=== PATIENT | female | born 1940 | race African-American/Black ===

== ENCOUNTER 2018-11-10 11:08 | Inpatient (IN) | payer MEDICARE, OTHER ==
[~2018-11-10] VITALS: Ht 157.5 cm; Wt 73.4 kg
[~2018-11-10 11:08] MED LIST: AML5T PO; DOCU100C8 PO; EST0625T PO; FER325T PO; FURO40TA4 PO; GLIP-115 PO; LEVO25TA49 PO; MET25T PO; POTA20TA53 PO; SIMV-8 PO; TRAM50TA2 PO
[2018-11-10 13:30] VITALS: BP 110/75
--- NOTE | 2018-11-10 13:30 | NUR ---
Received patient from [facility] SRAADOLORES Velasquez admitted to Telemetry unit after SBAR received. Patient is Alert to self, on continuous telemetry monitoring, tele box # 9 and telemetry reading on arrival to unit is SR, HR 99. Patient placed on bedside oxygen, encouraged to call if they need assistance. Oriented to room and call light. Bed at lowest position. Will continue to monitor Q1hr and as needed.
--- NOTE | 2018-11-10 14:00 | NUR ---
Attempted to contact Daughter Kirsty Alejandro who lives in [place] for further information on patient, no answer. Will call again .
--- NOTE | 2018-11-10 14:40 | NUR ---
Estela Coppola, previous caregiver of patient, stopped to inform me that she will no longer be her caregiver, as she is moving to [place]. She provided me with her phone number and asked to call Kirsty Alejandro the daughter of the patient for information. She offered her phone number just in case the daughter was unable to provide information. . Left message, awaiting call back.
--- NOTE | 2018-11-10 16:00 | NUR ---
Attempted to call Estela Coppola again. Left message. Awaiting call.
[2018-11-10 17:03] VITALS: BP 110/75
--- NOTE | 2018-11-10 18:17 | NUR ---
Received admitting orders from doctor Diallo, orders read back and verified.
--- NOTE | 2018-11-10 19:20 | NUR ---
Care endorsed to NOC Rn. Patient resting in bed, no s/s of distress. Bed at lowest position. Call light within reach.
--- NOTE | 2018-11-10 19:21 | NUR ---
Opening Shift Note Assumed care of patient, awake and confuse. No S/S of distress/SOB or pain. Will continue to monitor for changes Q1hr and PRN.
[2018-11-10 19:55] LABS: BUN/Creatinine Ratio 28.9; Calcium 8.3 mg/dL (8.5-10.1); Potassium 3.9 mmol/L (3.5-5.1)
[2018-11-10 20:00] VITALS: BP 106/74
--- NOTE | 2018-11-10 20:40 | NUR ---
Respiratory note: ABG RESULTS REPORTED TO RN. DR. PERALTA NOTIFIED, NO NEW RESPIRATORY ORDERS GIVEN.
[2018-11-10] MEDS ORDERED: DOBUTamine 1000MCG/ML 250 ML IV SCH (21:00)
[2018-11-10 21:30] VITALS: BP 110/65
[2018-11-10] MEDS ORDERED: NITROGLYCERIN 0.4 MG SL TAB SL PRN (22:00)
[2018-11-10] MEDS ORDERED: MORPHINE SULFATE 10 MG/ML INJ 1ML SDV IV PRN (22:00)
[2018-11-10 22:57] LABS: Basophils # (auto) 0 uL; Basophils % (auto) 0.1 % (0.0-2.0); Eosinophils # (auto) 0 uL; Hematocrit 29.6 % (36.0-46.0); Hemoglobin 9.6 g/dL (12.2-16.2); Lymphocytes # (auto) 1.6 uL; Lymphocytes % (auto) 13.3 % (10.0-50.0); Mean Corpuscular Hemoglobin 29.9 pg (28.0-32.0); Mean Corpuscular Hgb Conc. 32.5 g/dL (32.0-36.0); Mean Corpuscular Volume 92.1 fL (80.0-100.0); Monocytes # (auto) 1.4 uL; Monocytes % (auto) 11.8 % (0.0-12.0); Neutrophils # (auto) 8.8 uL; Neutrophils % (auto) 74.8 % (37.0-80.0); Nucleated Red Blood Cells % 0.4 %; Platelet Count (auto) 186 10^3/uL (140-450); Red Blood Cells 3.22 10^6/uL (4.0-5.20); Red Cell Distribution Width 15.6 % (11.8-14.3); White Blood Cell 11.8 10^3/uL (4.4-10.8)
[2018-11-11] VITALS (7 sets, daily range): BP systolic 97–123; BP diastolic 61–82
[2018-11-11] MEDS: METOPROLOL TARTRATE 50 MG TAB PO SCH ×3 (00:04→22:50)
[2018-11-11] MEDS: busPIRone HCL 10 MG TAB PO SCH ×3 (00:04→22:49)
[2018-11-11] MEDS: FUROSEMIDE 40 MG/4 ML VIAL IV SCH ×3 (00:05→22:53)
[2018-11-11] MEDS ORDERED: traMADol HCL 50 MG TAB PO PRN (04:30)
[2018-11-11] MEDS: DOBUTamine 1000MCG/ML 250 ML IV SCH ×2 (07:15→17:56)
--- NOTE | 2018-11-11 07:30 | NUR ---
Opening shift note: Assumed care of patient, comfortably sleeping, breath sounds even and unlabored. No S/S of distress/SOB or pain. Bed at lowest position, bed alarm on and call light within reach. Instructed on POC and to call for assist PRN, will continue to monitor for changes Q1hr and PRN.
[2018-11-11] MEDS: LEVOTHYROXINE SODIUM 50 MCG TAB PO SCH (07:54)
[2018-11-11] MEDS: glipiZIDE 5 MG TAB PO SCH (07:54)
[2018-11-11] MEDS: FERROUS SULFATE 325 MG TAB PO SCH (10:00)
[2018-11-11] MEDS: DOCUSATE SOD 100 MG CAP PO SCH (10:00)
[2018-11-11] MEDS: amLODIPine BESYLATE 5 MG TAB PO SCH (10:00)
[2018-11-11] MEDS: PREMARIN 0.625 MG PO SCH (10:00)
[2018-11-11] MEDS: POTASSIUM CHL 20 Meq TABLET PO SCH (10:00)
--- NOTE | 2018-11-11 10:45 | NUR ---
WOUND CARE NOTE: PATIENT NOTED TO HAVE LOW DENISSE SCORE OF 12, ADDED PATIENT TO SKIN INTEGRITY MONITORING. PATIENT ADMITTED TO [facility] WITH DIAGNOSIS OF PNA. SHE IS WOUND FREE AT THIS TIME. MOST CURRENT DENISSE SCORE HAS RISEN TO 18. SHE CAN TURN/REPOSITION SELF WITH MINIMAL ASSISTANCE BY STAFF. SKIN/WOUND CARE PLAN IMPLEMENTED PER PROTOCOL. RECOMMEND: BID/MOISTURE BARRIER CREAM BID, SKIN/WOUND CARE PLAN. NO FURTHER MONITORING NEEDED AT THIS TIME.
--- NOTE | 2018-11-11 14:10 | NUR ---
Patients blood sugar 220, will inform Dr. Landrum. No s/s of distress noted or stated.
[2018-11-11] MEDS ORDERED: InsuLIN REG 1unit/0.01ml Soln (100units/ml) SC SCH (18:15)
[2018-11-11] MEDS ORDERED: ACCU-CHEK COMFORT CURVE STRIP VI SCH ×2 (18:15→22:00)
[2018-11-11] MEDS ORDERED: DEXTROSE (50%) 50ML SYRG IV PRN ×3 (18:15→19:00)
--- NOTE | 2018-11-11 18:20 | NUR ---
Dr. Landrum ordered moderate sliding scale, orders read back and verified.
--- NOTE | 2018-11-11 18:53 | NUR ---
ending shift note Patient is resting in bed, no s/s of distress noted or stated. Bed at lowest position and call light within reach. Will endorse care to NOC RN.
--- NOTE | 2018-11-11 19:00 | NUR ---
Opening Shift Note Assumed care of patient, awake, confuse. No S/S of distress/SOB or pain.Will continue to monitor for changes Q1hr and PRN.
[2018-11-11] MEDS: ACCU-CHEK COMFORT CURVE STRIP VI SCH (22:00)
[2018-11-11] MEDS ORDERED: SIMVASTATIN PO SCH (22:00)
[2018-11-11] MEDS: InsuLIN REG 1unit/0.01ml Soln (100units/ml) SC SCH ×2 (22:00)
[2018-11-11] MEDS: ATORVASTATIN 20 MG TAB PO SCH (22:50)
[2018-11-12] VITALS (7 sets, daily range): BP systolic 9–111; BP diastolic 49–72
[2018-11-12] MEDS: DOBUTamine 1000MCG/ML 250 ML IV SCH ×2 (06:41→14:12)
[2018-11-12] MEDS: LEVOTHYROXINE SODIUM 50 MCG TAB PO SCH (07:00)
[2018-11-12] MEDS: ACCU-CHEK COMFORT CURVE STRIP VI SCH ×4 (07:01→22:00)
[2018-11-12] MEDS: InsuLIN REG 1unit/0.01ml Soln (100units/ml) SC SCH ×4 (07:01→22:00)
[2018-11-12] MEDS: glipiZIDE 5 MG TAB PO SCH (07:01)
--- NOTE | 2018-11-12 07:30 | NUR ---
OPENING SHIFT NOTE: ASSUMED CARE OF PATIENT, PATIENT AWAKE, SITTING UP IN BED HAVING BREAKFAST. PATIENT ORIENTED X2, NO S/S OF DISTRESS NOTED OR STATED. BED AT LOWEST POSITION, BED ALARM ON, CALL LIGHT WITHIN REACH.
[2018-11-12] MEDS ORDERED: OPTISON 3ml Vial for INJ IV ONE (09:50)
[2018-11-12] MEDS: PREMARIN 0.625 MG PO SCH (10:00)
[2018-11-12] MEDS: amLODIPine BESYLATE 5 MG TAB PO SCH (10:00)
[2018-11-12] MEDS: METOPROLOL TARTRATE 50 MG TAB PO SCH ×2 (10:00→22:57)
[2018-11-12] MEDS: FUROSEMIDE 40 MG/4 ML VIAL IV SCH ×2 (10:00→22:54)
[2018-11-12] MEDS: FERROUS SULFATE 325 MG TAB PO SCH (10:47)
[2018-11-12] MEDS: POTASSIUM CHL 20 Meq TABLET PO SCH (10:48)
[2018-11-12] MEDS: DOCUSATE SOD 100 MG CAP PO SCH (10:48)
[2018-11-12] MEDS: busPIRone HCL 10 MG TAB PO SCH ×2 (10:48→22:56)
--- NOTE | 2018-11-12 12:23 | NUR ---
TELE MONITOR INFORMED ME THAT PATIENT WAS RUNNING AFIB WITH RBR RANGING FROM 190-208. PATIENT IS ASYMPTOMATIC. NO S/S OF DISTRESS NOTED OR STATED. NOTIFIED DR. PERALTA.
--- NOTE | 2018-11-12 12:50 | NUR ---
PATIENT'S EKG READS ABNORMAL, SHOWED IT TO DR. KLEIN, DOCTOR STATES ITS NOTHING URGENT. DR. PERALTA UPDATED. WILL CONTINUE TO MONITOR PATIENT. Addendum: 11/12/18 at 1322 by Sara Aragon RN DR. PERALTA ORDERED BETAPACE 40MG BID. ORDERS READ BACK AND VERIFIED.
[2018-11-12] MEDS: SOTALOL HCL 80 MG TAB PO SCH ×2 (14:46→22:56)
--- NOTE | 2018-11-12 19:00 | NUR ---
END OF SHIFT NOTE: PATIENT IS RESTING IN BED, NO S/S OF DISTRESS NOTED, OR STATED. BED AT LOWEST POSITION , CALL LIGHT WITHIN REACH. WILL ENDORSE CARE TO NOC RN.
[2018-11-12] MEDS: ATORVASTATIN 20 MG TAB PO SCH (22:55)
[2018-11-13 04:53] LABS: Urine Amorphous Crystal FEW /hpf (None Seen); Urine Bacteria MOD /hpf (None Seen); Urine Blood Negative /uL (Negative); Urine Budding Yeast MODERATE /hpf (None Seen); Urine Hyaline Cast FEW /lpf (0 - 2); Urine Mucus FEW (None Seen); Urine Specific Gravity 1.012 (1.001-1.035); Urine WBC 48 /hpf (0 - 5)
[2018-11-13 05:50] VITALS: BP 93/57
[2018-11-13] MEDS: DOBUTamine 1000MCG/ML 250 ML IV SCH ×3 (06:24→18:27)
[2018-11-13] MEDS: LEVOTHYROXINE SODIUM 50 MCG TAB PO SCH (06:25)
[2018-11-13] MEDS: glipiZIDE 5 MG TAB PO SCH ×2 (06:26→06:28)
[2018-11-13] MEDS: ACCU-CHEK COMFORT CURVE STRIP VI SCH ×4 (06:28→21:26)
[2018-11-13] MEDS: InsuLIN REG 1unit/0.01ml Soln (100units/ml) SC SCH ×4 (06:28→21:27)
--- NOTE | 2018-11-13 07:45 | NUR ---
OPENING SHIFT NOTE: ASSUMED CARE OF PATIENT, PATIENT AWAKE, SITTING UP IN BED HAVING BREAKFAST. PATIENT ORIENTED X1, NO S/S OF DISTRESS NOTED OR STATED. BED AT LOWEST POSITION, BED ALARM ON, CALL LIGHT WITHIN REACH.
[2018-11-13 08:00] VITALS: BP 111/68
[2018-11-13 09:00] VITALS: BP 111/68
[2018-11-13] MEDS: SOTALOL HCL 80 MG TAB PO SCH ×3 (09:38→21:56)
[2018-11-13] MEDS: METOPROLOL TARTRATE 50 MG TAB PO SCH ×2 (09:38→21:24)
[2018-11-13] MEDS: POTASSIUM CHL 20 Meq TABLET PO SCH ×2 (09:39→09:48)
[2018-11-13] MEDS: FERROUS SULFATE 325 MG TAB PO SCH (09:39)
[2018-11-13] MEDS: busPIRone HCL 10 MG TAB PO SCH ×2 (09:39→21:22)
[2018-11-13] MEDS: amLODIPine BESYLATE 5 MG TAB PO SCH (09:39)
[2018-11-13] MEDS: DOCUSATE SOD 100 MG CAP PO SCH (09:39)
[2018-11-13] MEDS: FUROSEMIDE 40 MG/4 ML VIAL IV SCH ×2 (09:40→18:00)
[2018-11-13] MEDS: PREMARIN 0.625 MG PO SCH (09:40)
--- NOTE | 2018-11-13 12:30 | NUR ---
Heart Cath Patient transferred to laboratory technical specialist.
[2018-11-13] MEDS ORDERED: LIDOCAINE 2%HCL (LOCAL ANESTH.) INJ 20ML MDV ONE ×2 (12:44→14:14)
[2018-11-13] MEDS ORDERED: IOHEXOL 350 MG/ML 100ML IJ ONE (12:44)
[2018-11-13 12:54] VITALS: BP 91/55
[2018-11-13] MEDS ORDERED: SODIUM CHL 0.9% 0 ML ONE (13:27)
[2018-11-13] MEDS ORDERED: ANGIOMAX 250 MG VIAL IV ONE (13:27)
[2018-11-13] MEDS ORDERED: CLOPIDOGREL 300 MG TAB ONE (14:54)
[2018-11-13] MEDS ORDERED: CLOPIDOGREL BISULFATE 75 MG TAB ONE (15:44)
[2018-11-13] MEDS ORDERED: DOBUTamine 1000MCG/ML 250 ML IV SCH (16:00)
[2018-11-13] MEDS ORDERED: CLOPIDOGREL BISULFATE 75 MG TAB PO ONE (16:00)
[2018-11-13 16:55] VITALS: BP 95/59
[2018-11-13] MEDS ORDERED: CLOPIDOGREL 300 MG TAB PO ONE (17:00)
[2018-11-13] MEDS: ENOXAPARIN SOD 60 MG/0.6 ML SYRINGE SC SCH ×2 (18:00→18:27)
[2018-11-13 18:35] LABS: INR 1.12 (0.9-1.15); Partial Thromboplastin Time 24.4 sec (23.78-33.04); Prothrombin Time 11.9 sec (9.27-12.13)
--- NOTE | 2018-11-13 20:00 | NUR ---
Opening Shift Note Assumed care of patient, awake and alert to self. No S/S of distress/SOB or pain. Instructed on POC and to call for assist PRN, will continue to monitor for changes Q1hr and PRN.Right and left groin dressing dry and intact.
[2018-11-13] MEDS: ATORVASTATIN 20 MG TAB PO SCH (22:27)
[2018-11-13 22:45] VITALS: BP 97/62
[2018-11-14] VITALS (7 sets, daily range): BP systolic 87–121; BP diastolic 55–69
--- NOTE | 2018-11-14 05:37 | NUR ---
Informed Yeison Bunn ,patients blood pressure is 87/55,88/52, and said as long as the map is greater than 60 its brayan with him, map is 66.
[2018-11-14] MEDS: FUROSEMIDE 40 MG/4 ML VIAL IV SCH ×2 (06:00→17:09)
--- NOTE | 2018-11-14 06:09 | NUR ---
Called/paged called re:patients blood pressure is 87/55,88/52 pulse is 86 . Waiting for call back. Continue care.
[2018-11-14] MEDS: glipiZIDE 5 MG TAB PO SCH (06:18)
[2018-11-14] MEDS: LEVOTHYROXINE SODIUM 50 MCG TAB PO SCH (06:18)
[2018-11-14] MEDS: ACCU-CHEK COMFORT CURVE STRIP VI SCH ×4 (06:19→22:17)
[2018-11-14] MEDS: InsuLIN REG 1unit/0.01ml Soln (100units/ml) SC SCH ×4 (06:19→22:00)
--- NOTE | 2018-11-14 06:41 | NUR ---
Rechecked the blood pressure its 110/60, pulse is 83
--- NOTE | 2018-11-14 07:13 | NUR ---
REPORT GIVEN TO Kassie lackey TO ASSUME CARE AND TO FOLLOW-UP TO MD. BETANCOURT HAD EPISODE OF LOW BLOOD PRESSURE AT 0600
--- NOTE | 2018-11-14 07:20 | NUR ---
Opening Shift Note Assumed care of patient. Patient oriented X 1. No S/S of distress/SOB or pain. Insructed on POC and to callfor assist PRN, will continue to monitor for changes Q1hr and PRN.
--- NOTE | 2018-11-14 09:40 | NUR ---
Dr. Landrum returned call Notified of low BP on shift boss. Also read back results from CT scan and ABGs and family's request for phone call.
[2018-11-14] MEDS: FERROUS SULFATE 325 MG TAB PO SCH (09:47)
[2018-11-14] MEDS: PREMARIN 0.625 MG PO SCH (09:47)
[2018-11-14] MEDS: DOCUSATE SOD 100 MG CAP PO SCH (09:48)
[2018-11-14] MEDS: busPIRone HCL 10 MG TAB PO SCH ×2 (09:48→22:16)
[2018-11-14] MEDS: CLOPIDOGREL BISULFATE 75 MG TAB PO SCH (09:49)
[2018-11-14] MEDS: POTASSIUM CHL 20 Meq TABLET PO SCH (09:51)
[2018-11-14] MEDS: SOTALOL HCL 80 MG TAB PO SCH ×2 (09:52→22:17)
[2018-11-14] MEDS: METOPROLOL TARTRATE 50 MG TAB PO SCH ×2 (09:52→22:15)
[2018-11-14] MEDS: amLODIPine BESYLATE 5 MG TAB PO SCH (09:54)
--- NOTE | 2018-11-14 11:51 | NUR ---
Nutrition Assessment Notes please see attached link for complete assessment Est. Needs ABW [id number] kcal (20-23 kcal/kgBW), 51-64 gms pro (0.8-1.0 gms/kgABW r/t elev RFT). Will continue to monitor pertinent labs and reassess nutrient need prn Addendum: 11/14/18 at [address] Amended: Links added.
[2018-11-14] MEDS: DOBUTamine 1000MCG/ML 250 ML IV SCH (15:02)
[2018-11-14] MEDS ORDERED: ENOXAPARIN SOD 60 MG/0.6 ML SYRINGE SC SCH (17:00)
[2018-11-14] MEDS: ENOXAPARIN SOD 60 MG/0.6 ML SYRINGE SC SCH (17:09)
[2018-11-14 17:38] LABS: BUN/Creatinine Ratio 26.2; Calcium 8.3 mg/dL (8.5-10.1); Potassium 3.2 mmol/L (3.5-5.1)
--- NOTE | 2018-11-14 18:45 | NUR ---
Left message with Dr. Diallo Valderrama 3.2
[2018-11-14] MEDS: ATORVASTATIN 20 MG TAB PO SCH (22:15)
[2018-11-15 05:03] VITALS: BP 98/52
[2018-11-15] MEDS: FUROSEMIDE 40 MG/4 ML VIAL IV SCH ×2 (06:03→18:00)
[2018-11-15] MEDS: ENOXAPARIN SOD 60 MG/0.6 ML SYRINGE SC SCH ×2 (06:04→18:00)
[2018-11-15] MEDS: LEVOTHYROXINE SODIUM 50 MCG TAB PO SCH (06:47)
[2018-11-15] MEDS: InsuLIN REG 1unit/0.01ml Soln (100units/ml) SC SCH ×4 (06:47→22:00)
[2018-11-15] MEDS: ACCU-CHEK COMFORT CURVE STRIP VI SCH ×4 (06:48→22:28)
--- NOTE | 2018-11-15 07:30 | NUR ---
Opening Shift Note Assumed care of patient, awake and oriented only to self. No signs or symptoms of distress/SOB or pain. Internal Jugular line in left neck 18 gauge asymptomatic, patent, and intact and infusing dobutamine at 11.94 mL/hour. IV in right AC asymptomatic, intact, patent, and saline locked. Blas catheter patent and draining clear yellow urine to gravity. Bed locked and in lowest position and call light is within reach, and bed alarm is on. Instructed on POC and to call for assist PRN, and patient verbalized understanding to the best of her ability. Will continue to monitor for changes Q1hr and PRN.
[2018-11-15 08:20] VITALS: BP 103/56
[2018-11-15] MEDS: POTASSIUM CHL 20 Meq TABLET PO SCH (10:00)
[2018-11-15] MEDS: amLODIPine BESYLATE 5 MG TAB PO SCH (10:00)
[2018-11-15] MEDS: METOPROLOL TARTRATE 50 MG TAB PO SCH ×2 (10:00→22:28)
[2018-11-15] MEDS: DOCUSATE SOD 100 MG CAP PO SCH (10:00)
[2018-11-15] MEDS: glipiZIDE 5 MG TAB PO SCH (10:23)
[2018-11-15] MEDS: PREMARIN 0.625 MG PO SCH (10:25)
[2018-11-15] MEDS: SOTALOL HCL 80 MG TAB PO SCH ×2 (10:26→22:27)
[2018-11-15] MEDS: busPIRone HCL 10 MG TAB PO SCH ×2 (10:27→22:27)
[2018-11-15] MEDS: FERROUS SULFATE 325 MG TAB PO SCH (10:31)
[2018-11-15] MEDS: CLOPIDOGREL BISULFATE 75 MG TAB PO SCH (10:33)
[2018-11-15] MEDS: DOBUTamine 1000MCG/ML 250 ML IV SCH (10:39)
--- NOTE | 2018-11-15 12:27 | NUR ---
assessment Patient is a 78 year old female who is confused. Per patients daughter Kiley prior to admission patient lived home alone and functioned with the assistance of her friend and caregiver. Patient was just discharged from [facility] in September. Patient has a rollator for home use. Patients PCP is Dr Stanley. Per Kiley patient should go to rehab on discharge. Per Kiley Osborne to be contacted. Patient is on service with [facility]. Per Kiley she wants to be involved with patients discharge planning. I informed Kiley she has a right to speak to a social worker psychiatric regarding all care. I informed Kiley she has a right to participate in any and all discharge planning. Kiley is aware of visiting hours on the hospital floor. I informed Kiley she has a right to privacy. Patient does not have a POA and advanced directive. I have offered Kiley information on POA and advanced directives. I informed Kiley the advantages and benefits of having an Advanced Directive. Kiley verbalized understanding and agreed to discharge plan. Per ss consult patient lives alone, daughter and son live in [place]. I have spoken with son and daughter and discharge plan is for SNF on discharge. Per ss consult caregiver recently moved. Caregiver did recently move. Patient will be discharged to SNF. Daughter Kiley will make a visit to help with patients future living arrangements after rehab. Addendum: 11/15/18 at 1242 by Bhumika GONZALEZ Amended: Links added.
[2018-11-15 14:28] VITALS: BP 106/74
[2018-11-15 16:43] VITALS: BP 103/76
--- NOTE | 2018-11-15 17:52 | NUR ---
PAGED DR. PERALTA
--- NOTE | 2018-11-15 18:01 | NUR ---
PATIENT REMOVED IV Patient removed IJ IV in neck; catheter fully intact. Pressure dressing applied to site.
--- NOTE | 2018-11-15 18:02 | NUR ---
IV REMOVAL IV DC'd out of left forearm with sterile technique, catheter fully intact. Pressure dressing applied to site. Patient tolerated procedure well.
[2018-11-15 22:00] VITALS: BP 123/76
[2018-11-15] MEDS: ATORVASTATIN 20 MG TAB PO SCH (22:27)
[2018-11-16 05:00] VITALS: BP 89/43
[2018-11-16] MEDS: FUROSEMIDE 40 MG/4 ML VIAL IV SCH ×2 (06:00→17:40)
[2018-11-16] MEDS: LEVOTHYROXINE SODIUM 50 MCG TAB PO SCH (06:04)
[2018-11-16] MEDS: ENOXAPARIN SOD 60 MG/0.6 ML SYRINGE SC SCH ×2 (06:04→17:40)
[2018-11-16] MEDS: glipiZIDE 5 MG TAB PO SCH (06:04)
[2018-11-16] MEDS: ACCU-CHEK COMFORT CURVE STRIP VI SCH ×4 (06:05→22:00)
[2018-11-16] MEDS: InsuLIN REG 1unit/0.01ml Soln (100units/ml) SC SCH ×4 (06:05→22:00)
[2018-11-16] MEDS: DOBUTamine 1000MCG/ML 250 ML IV SCH (07:36)
--- NOTE | 2018-11-16 08:15 | NUR ---
Morning note Report received and bedside handoff completed. Patient observed asleep without S/S of distress. This RN tried to wake patient by calling name without response. Patient only aroused by painful stimuli. Patient only moaning and mumbling, speech is incomprehensible. Steph Frias, at bedside states patient moves around in bed a lot. Mittens in place as patient removed IJ last night. Will continue to monitor patient frequently as she can not verbalize needs.
--- NOTE | 2018-11-16 08:45 | NUR ---
Patient awake Upon assessment, patient more awake than previously. Patient shook her head in acknowledgement that this RN will be her nurse for the day.
[2018-11-16 09:00] VITALS: BP 100/56
--- NOTE | 2018-11-16 09:42 | NUR ---
Midline Placement to left brachial after third attempt. Narrow vessels. 18g/10cm in length. Flushes easily, blood return obtained from single port. Tolerated well. Primary RN notified. Lot#[id number].
[2018-11-16] MEDS: amLODIPine BESYLATE 5 MG TAB PO SCH (10:00)
[2018-11-16] MEDS: PREMARIN 0.625 MG PO SCH (10:00)
[2018-11-16] MEDS: FERROUS SULFATE 325 MG TAB PO SCH (10:23)
[2018-11-16] MEDS: SOTALOL HCL 80 MG TAB PO SCH ×2 (10:26→20:54)
[2018-11-16] MEDS: busPIRone HCL 10 MG TAB PO SCH ×2 (10:27→20:54)
[2018-11-16] MEDS: DOCUSATE SOD 100 MG CAP PO SCH (10:27)
[2018-11-16] MEDS: POTASSIUM CHL 20 Meq TABLET PO SCH (10:28)
[2018-11-16] MEDS: CLOPIDOGREL BISULFATE 75 MG TAB PO SCH (10:28)
[2018-11-16] MEDS: METOPROLOL TARTRATE 50 MG TAB PO SCH ×2 (10:28→22:00)
[2018-11-16 11:54] VITALS: BP 97/60
--- NOTE | 2018-11-16 14:46 | NUR ---
MD rounded Dr. Landrum rounding on patient, discussed patient's UA resulting with 4+ leukocytes, moderate bacteria, and currently having some hematuria. MD gave order for Rocephin 1 Gm daily IV PB. Order entered into computer.
[2018-11-16 16:04] VITALS: BP 100/58
[2018-11-16] MEDS: cefTRIAXone 1GM/50ML D5W 50 ML IV SCH (20:53)
[2018-11-16] MEDS: ATORVASTATIN 20 MG TAB PO SCH (20:54)
[2018-11-16 21:49] VITALS: BP 111/57
[2018-11-17] MEDS: DOBUTamine 1000MCG/ML 250 ML IV SCH (04:33)
[2018-11-17 05:47] VITALS: BP 106/59
[2018-11-17] MEDS: FUROSEMIDE 40 MG/4 ML VIAL IV SCH ×2 (05:49→18:16)
[2018-11-17] MEDS: ACCU-CHEK COMFORT CURVE STRIP VI SCH ×4 (05:50→22:07)
[2018-11-17] MEDS: LEVOTHYROXINE SODIUM 50 MCG TAB PO SCH (05:50)
[2018-11-17] MEDS: InsuLIN REG 1unit/0.01ml Soln (100units/ml) SC SCH ×4 (05:50→22:07)
[2018-11-17] MEDS: ENOXAPARIN SOD 60 MG/0.6 ML SYRINGE SC SCH ×2 (05:50→18:16)
[2018-11-17] MEDS: glipiZIDE 5 MG TAB PO SCH (05:50)
--- NOTE | 2018-11-17 07:29 | NUR ---
Morning note Report received and bedside handoff completed. Patient observed awake, alert, only oriented to self, but without S/S of distress. Patient reoriented to this RN and hospital. Patient shook head in acknowledgement and Darren kwon, at bedside. Patient has notable clear yellow urine in comparison to the hematuria noted in luke yesterday. Will continue to monitor patient hourly and PRN due to inability to verbalize needs.
[2018-11-17 09:00] VITALS: BP 116/61
[2018-11-17] MEDS: FERROUS SULFATE 325 MG TAB PO SCH ×2 (09:48→10:00)
[2018-11-17] MEDS: SOTALOL HCL 80 MG TAB PO SCH ×2 (09:48→21:40)
[2018-11-17] MEDS: METOPROLOL TARTRATE 50 MG TAB PO SCH ×2 (09:48→21:39)
[2018-11-17] MEDS: DOCUSATE SOD 100 MG CAP PO SCH (09:49)
[2018-11-17] MEDS: POTASSIUM CHL 20 Meq TABLET PO SCH ×2 (09:49→10:00)
[2018-11-17] MEDS: busPIRone HCL 10 MG TAB PO SCH ×2 (09:49→21:39)
[2018-11-17] MEDS: PREMARIN 0.625 MG PO SCH (09:50)
[2018-11-17] MEDS: amLODIPine BESYLATE 5 MG TAB PO SCH (09:50)
[2018-11-17] MEDS: CLOPIDOGREL BISULFATE 75 MG TAB PO SCH (09:50)
[2018-11-17 13:00] VITALS: BP 90/52
[2018-11-17 16:30] VITALS: BP 108/54
--- NOTE | 2018-11-17 17:00 | NUR ---
Insulin SS held Patient has eaten minimally today and only drank her milk and small amount of protein shake for dinner.
[2018-11-17] MEDS: Glucerna Carbsteady SHAKE Vanilla 8oz PO SCH (18:16)
[2018-11-17] MEDS: cefTRIAXone 1GM/50ML D5W 50 ML IV SCH (21:34)
[2018-11-17] MEDS: ATORVASTATIN 20 MG TAB PO SCH (21:40)
[2018-11-17 22:00] VITALS: BP 113/56
--- NOTE | 2018-11-17 23:27 | NUR ---
Opening Shift Note Assumed care of patient. Patient awake and alert to self. No S/S of distress/SOB or pain noted. Patient is on 2L nasal cannula and sitter is noted at bedside. Instructed on plan of care and to call for assistance as needed, reinforcement needed. Bed is locked in lowest position, side rails x 2 are up, call light is within reach, and bed alarm is on.
[2018-11-18] MEDS: DOBUTamine 1000MCG/ML 250 ML IV SCH ×2 (01:30→15:59)
[2018-11-18 05:00] VITALS: BP 93/61
[2018-11-18] MEDS: FUROSEMIDE 40 MG/4 ML VIAL IV SCH ×2 (06:00→18:07)
[2018-11-18] MEDS: ENOXAPARIN SOD 60 MG/0.6 ML SYRINGE SC SCH ×2 (06:00→18:05)
[2018-11-18] MEDS: ACCU-CHEK COMFORT CURVE STRIP VI SCH ×4 (06:42→21:33)
[2018-11-18] MEDS: glipiZIDE 5 MG TAB PO SCH (06:42)
[2018-11-18] MEDS: LEVOTHYROXINE SODIUM 50 MCG TAB PO SCH (06:42)
[2018-11-18] MEDS: InsuLIN REG 1unit/0.01ml Soln (100units/ml) SC SCH ×4 (06:43→21:33)
--- NOTE | 2018-11-18 07:32 | NUR ---
RECEIVED REPORT FROM NIGHT NURSE. PATIENT RESTING IN BED, NO DISTRESS NOTED. WILL CONTINUE TO MONITOR. SITTER AT BEDSIDE.
--- NOTE | 2018-11-18 07:46 | NUR ---
CLOSING SHIFT NOTE Patient care endorsed to Elenita VILLANUEVA.
[2018-11-18] MEDS: Glucerna Carbsteady SHAKE Vanilla 8oz PO SCH ×3 (08:00→18:00)
[2018-11-18 08:56] VITALS: BP 108/70
[2018-11-18] MEDS: METOPROLOL TARTRATE 50 MG TAB PO SCH ×2 (10:00→21:35)
[2018-11-18] MEDS: POTASSIUM CHL 20 Meq TABLET PO SCH (10:00)
[2018-11-18] MEDS: CLOPIDOGREL BISULFATE 75 MG TAB PO SCH (11:02)
[2018-11-18] MEDS: amLODIPine BESYLATE 5 MG TAB PO SCH (11:03)
[2018-11-18] MEDS: DOCUSATE SOD 100 MG CAP PO SCH (11:03)
[2018-11-18] MEDS: PREMARIN 0.625 MG PO SCH (11:04)
[2018-11-18] MEDS: FERROUS SULFATE 325 MG TAB PO SCH (11:04)
[2018-11-18] MEDS: busPIRone HCL 10 MG TAB PO SCH ×2 (11:04→21:34)
[2018-11-18] MEDS: SOTALOL HCL 80 MG TAB PO SCH ×2 (11:05→21:35)
[2018-11-18] MEDS ORDERED: POTASSIUM EFFERVESENT TAB 25 MEQ PO ONE (11:15)
[2018-11-18 12:55] VITALS: BP 100/59
--- NOTE | 2018-11-18 14:42 | NUR ---
Nutrition Consult and Follow-up Notes Wt.: 77.8 kg today. Pt's on oxygen via nasal cannula, awake, aphasic, ? confused, no immediate family member at bedside except for sitter during rounds this morning. Pt's no signs of distress earlier, with poor PO intake even being fed, however still refusing meals, per sitter. Pt's currently on 2 gms Na with Glucerna Shakes 1 carton TID, has inadequate PO intake aeb <25% ave. consumed meals (x2) in last 2.5 days. Est. Needs ABW [id number] kcal (20-23 kcal/kgBW), 51-64 gms pro (0.8-1.0 gms/kgABW r/t elev RFT). Will continue to monitor pertinent labs and reassess nutrient need prn Labs: No new labs today except for POC Gluc 153 H Skin: Jd scale 13, mod risk, pt's medial chest incision dry and intact per entry level truck driver. GI: Pt had 1 BM this morning per entry level truck driver. PES: Inadequate PO intake r/t ? cognitive function aeb ALOC, confused, aphasic, poor PO intake, refusing meals. Altered nutrition related lab values r/t current/chronic medical condition aeb elev RFT hypocalcemia, hyperglycemia Will continue to monitor PO intake, skin status, pertinent labs and weight trend. F/u in 3 to 5 days. Rec.: 1.) If pt's gluc level remains consistently elev. consider Consistent Std. Carb: 60 gms/meal in addition to current therapeutic diet. 2.) Continue close supervision and feeding assistance prn during meals. 3.) Consider appetite stimulant prn to improved PO intake. 4.) Refer pt to CDE/RD for further nutrition education and weight monitoring upon discharge. 5.) Continue current plan of care. Thank you for this consult.
[2018-11-18 16:55] VITALS: BP 97/55
--- NOTE | 2018-11-18 19:30 | NUR ---
Opening Shift Note Assumed care of patient. Patient is awake. Patient is alert to self. No S/S of distress/SOB or pain noted. Patient is on a Dobutrex drip 11.9 ml/hr infusing to her midline located on her left upper arm. Instructed on plan of care and to call for assistance as needed, reinforcement needed. Sitter noted at bedside. Bed is locked in lowest position, side rails x 2 are up, call light is within reach, and bed alarm is on.
[2018-11-18] MEDS: cefTRIAXone 1GM/50ML D5W 50 ML IV SCH (21:25)
[2018-11-18] MEDS: ATORVASTATIN 20 MG TAB PO SCH (21:33)
[2018-11-18 22:00] VITALS: BP 104/67
[2018-11-19 05:43] VITALS: BP 119/58
[2018-11-19] MEDS: ACCU-CHEK COMFORT CURVE STRIP VI SCH ×4 (06:14→23:02)
[2018-11-19] MEDS: glipiZIDE 5 MG TAB PO SCH (06:14)
[2018-11-19] MEDS: LEVOTHYROXINE SODIUM 50 MCG TAB PO SCH (06:14)
[2018-11-19] MEDS: ENOXAPARIN SOD 60 MG/0.6 ML SYRINGE SC SCH ×2 (06:14→18:00)
[2018-11-19] MEDS: FUROSEMIDE 40 MG/4 ML VIAL IV SCH ×2 (06:14→18:00)
[2018-11-19] MEDS: InsuLIN REG 1unit/0.01ml Soln (100units/ml) SC SCH ×5 (06:15→23:08)
--- NOTE | 2018-11-19 07:16 | NUR ---
CLOSING SHIFT NOTE Endorsed patient care to Elenita VILLANUEVA.
--- NOTE | 2018-11-19 07:30 | NUR ---
RECEIVED REPORT FROM NIGHT NURSE. PATIENT RESTING IN BED, NO DISTRESS NOTED. WILL CONTINUE TO MONITOR.
[2018-11-19] MEDS: Glucerna Carbsteady SHAKE Vanilla 8oz PO SCH ×3 (08:00→18:00)
[2018-11-19 09:00] VITALS: BP 109/54
[2018-11-19] MEDS: METOPROLOL TARTRATE 50 MG TAB PO SCH ×2 (10:00→23:02)
[2018-11-19] MEDS: POTASSIUM CHL 20 Meq TABLET PO SCH (10:00)
[2018-11-19] MEDS: busPIRone HCL 10 MG TAB PO SCH ×2 (10:48→23:01)
[2018-11-19] MEDS: DOCUSATE SOD 100 MG CAP PO SCH (10:48)
[2018-11-19] MEDS: amLODIPine BESYLATE 5 MG TAB PO SCH (10:49)
[2018-11-19] MEDS: CLOPIDOGREL BISULFATE 75 MG TAB PO SCH (10:49)
[2018-11-19] MEDS: FERROUS SULFATE 325 MG TAB PO SCH (10:49)
[2018-11-19] MEDS: SOTALOL HCL 80 MG TAB PO SCH ×2 (10:50→23:00)
[2018-11-19] MEDS: DOBUTamine 1000MCG/ML 250 ML IV SCH (11:21)
[2018-11-19] MEDS ORDERED: POTASSIUM EFFERVESENT TAB 25 MEQ PO ONE (11:30)
[2018-11-19] MEDS: PREMARIN 0.625 MG PO SCH (11:40)
[2018-11-19 13:00] VITALS: BP 100/65
[2018-11-19 17:00] VITALS: BP 105/71
--- NOTE | 2018-11-19 19:10 | NUR ---
Opening Shift Note Assumed care of patient from day shift RN. Pt is awake and alert to self only. Sitter at bedside. No S/S of distress/SOB or pain. Safety maintained with bed rails upx2, locked and in lowest position with call huitron within reach. Pt on 2L NC, respirations even equal and unlabored. Instructed on POC and to call for assist PRN, will continue to monitor for changes Q1hr and PRN.
[2018-11-19] MEDS: cefTRIAXone 1GM/50ML D5W 50 ML IV SCH (20:58)
[2018-11-19 22:00] VITALS: BP 128/65
[2018-11-19] MEDS: ATORVASTATIN 20 MG TAB PO SCH (23:01)
[2018-11-20 05:00] VITALS: BP 103/54
[2018-11-20] MEDS: FUROSEMIDE 40 MG/4 ML VIAL IV SCH ×2 (06:21→18:00)
[2018-11-20] MEDS: ENOXAPARIN SOD 60 MG/0.6 ML SYRINGE SC SCH ×2 (06:21→18:00)
[2018-11-20] MEDS: LEVOTHYROXINE SODIUM 50 MCG TAB PO SCH (06:21)
[2018-11-20] MEDS: ACCU-CHEK COMFORT CURVE STRIP VI SCH ×4 (06:22→21:27)
[2018-11-20] MEDS: InsuLIN REG 1unit/0.01ml Soln (100units/ml) SC SCH ×4 (06:33→21:38)
[2018-11-20] MEDS: glipiZIDE 5 MG TAB PO SCH (06:33)
--- NOTE | 2018-11-20 07:08 | NUR ---
OPENING SHIFT NOTE ASSUMED CARE OF PATIENT FROM DRAFTING DETAILER RN SUSAN. PATIENT IS ASLEEP AT THIS TIME. WILL INSTRUCT PATIENT ON POC. BED IS IN LOWEST POSITION WITH SIDE RAILS RAISED X2, BED WHEELS LOCKED, CALL LIGHT WITHIN REACH, CARRERO IS HANGING BELOW BLADDER AND IS DRAINING YELLOW URINE, SITTER AT BEDSIDE. WILL CONTINUE TO MONITOR
[2018-11-20 07:42] VITALS: BP 124/54
[2018-11-20] MEDS: Glucerna Carbsteady SHAKE Vanilla 8oz PO SCH ×3 (08:00→18:00)
[2018-11-20] MEDS: DOBUTamine 1000MCG/ML 250 ML IV SCH (08:08)
[2018-11-20 09:00] VITALS: BP 124/54
[2018-11-20] MEDS: FERROUS SULFATE 325 MG TAB PO SCH (10:00)
[2018-11-20] MEDS: DOCUSATE SOD 100 MG CAP PO SCH (10:00)
[2018-11-20] MEDS: POTASSIUM CHL 20 Meq TABLET PO SCH (10:00)
[2018-11-20] MEDS: SOTALOL HCL 80 MG TAB PO SCH ×2 (11:31→21:26)
[2018-11-20] MEDS: CLOPIDOGREL BISULFATE 75 MG TAB PO SCH (11:31)
[2018-11-20] MEDS: amLODIPine BESYLATE 5 MG TAB PO SCH (11:32)
[2018-11-20] MEDS: METOPROLOL TARTRATE 50 MG TAB PO SCH ×2 (11:32→17:14)
[2018-11-20] MEDS: PREMARIN 0.625 MG PO SCH (11:33)
[2018-11-20] MEDS: busPIRone HCL 10 MG TAB PO SCH ×2 (11:33→21:25)
[2018-11-20 13:00] VITALS: BP 109/57
--- NOTE | 2018-11-20 15:22 | NUR ---
MD PERALTA AT BEDSIDE. UPDATED MD ON PATIENT'S STATUS, MD IS AWARE. POSSIBLE AICD ON MONDAY
[2018-11-20 17:00] VITALS: BP 112/55
--- NOTE | 2018-11-20 19:05 | NUR ---
Opening Shift Note Assumed care of patient from day shift RICH Barba. Pt is awake and alert to self only. Sitter at bedside. No S/S of distress/SOB or pain. Blas intact and patent, draining to gravity. Safety maintained with bed rails upx2, locked and in lowest position with call huitron within reach. Pt on 2L NC, respirations even equal and unlabored. Instructed on POC and to call for assist PRN, will continue to monitor for changes Q1hr and PRN.
[2018-11-20] MEDS: cefTRIAXone 1GM/50ML D5W 50 ML IV SCH (21:24)
[2018-11-20] MEDS: ATORVASTATIN 20 MG TAB PO SCH (21:25)
[2018-11-20 22:00] VITALS: BP 108/57
[2018-11-21] MEDS: DOBUTamine 1000MCG/ML 250 ML IV SCH (03:53)
[2018-11-21 05:00] VITALS: BP 103/51
[2018-11-21] MEDS: ENOXAPARIN SOD 60 MG/0.6 ML SYRINGE SC SCH ×2 (06:02→17:36)
[2018-11-21] MEDS: ACCU-CHEK COMFORT CURVE STRIP VI SCH ×4 (06:03→22:55)
[2018-11-21] MEDS: LEVOTHYROXINE SODIUM 50 MCG TAB PO SCH (06:03)
[2018-11-21] MEDS: glipiZIDE 5 MG TAB PO SCH (06:13)
[2018-11-21] MEDS: FUROSEMIDE 40 MG/4 ML VIAL IV SCH ×2 (06:14→17:36)
[2018-11-21] MEDS: InsuLIN REG 1unit/0.01ml Soln (100units/ml) SC SCH ×4 (06:14→22:00)
--- NOTE | 2018-11-21 07:40 | NUR ---
opening Patient asleep in bed, sitter at bedside, no distress noted at this time. Bed in lowest position, call light within reach. Will f/u with morning assessment.
[2018-11-21] MEDS: Glucerna Carbsteady SHAKE Vanilla 8oz PO SCH ×3 (08:00→17:36)
[2018-11-21 09:00] VITALS: BP 119/88
[2018-11-21] MEDS: CLOPIDOGREL BISULFATE 75 MG TAB PO SCH (09:28)
[2018-11-21] MEDS: busPIRone HCL 10 MG TAB PO SCH ×2 (09:29→22:58)
[2018-11-21] MEDS: DOCUSATE SOD 100 MG CAP PO SCH (09:29)
[2018-11-21] MEDS: amLODIPine BESYLATE 5 MG TAB PO SCH (09:29)
[2018-11-21] MEDS: METOPROLOL TARTRATE 50 MG TAB PO SCH ×2 (09:29→22:00)
[2018-11-21] MEDS: SOTALOL HCL 80 MG TAB PO SCH ×2 (09:30→22:00)
[2018-11-21] MEDS: FERROUS SULFATE 325 MG TAB PO SCH (09:35)
[2018-11-21] MEDS: POTASSIUM CHL 20 Meq TABLET PO SCH (09:38)
[2018-11-21] MEDS: PREMARIN 0.625 MG PO SCH (10:00)
--- NOTE | 2018-11-21 12:02 | NUR ---
Nutrition Consult and Follow-up Notes Wt.: 77.5 kg today. Pt's on oxygen via nasal cannula, awake, aphasic, ? confused, no immediate family member at bedside except for sitter during rounds this morning. Pt's no signs of distress earlier, with poor PO as pt refuses to eat per BUSINESS CENTER MANAGER. pt also on Glucerna 1 carton tid and refusing. pt is currently on 2 gm na diet with iandequte PO of < 25% x 5 per RN doc Est. Needs ABW [id number] kcal (20-23 kcal/kgBW), 51-64 gms pro (0.8-1.0 gms/kgABW r/t elev RFT). Will continue to monitor pertinent labs and reassess nutrient need prn Labs: No new labs today except for POC Gluc 142 H Skin: Jd scale 12, high risk, pt's medial chest incision dry and intact per press tender short goods. GI: Pt had 1 BM this morning per press tender short goods. PES: Inadequate PO intake r/t ? cognitive function aeb ALOC, confused, aphasic, poor PO intake, refusing meals. Altered nutrition related lab values r/t current/chronic medical condition aeb elev RFT hypocalcemia, hyperglycemia Will continue to monitor PO intake, skin status, pertinent labs and weight trend. F/u in 3 to 5 days. Rec.: 1.) If pt's gluc level remains consistently elev. consider Consistent Std. Carb: 60 gms/meal in addition to current therapeutic diet. 2.) Continue close supervision and feeding assistance prn during meals. 3.) Consider appetite stimulant prn to improved PO intake. 4.) Refer pt to CDE/RD for further nutrition education and weight monitoring upon discharge. 5.) consider MVI/C bid. 6) Continue current plan of care.
[2018-11-21 13:00] VITALS: BP 116/65
--- NOTE | 2018-11-21 13:16 | NUR ---
NURSE NOTE-MD KATHRYN PERALTA IS AWARE OF FAMILY CONCERN AND QUESTIONS FOR MD. KATHRYN HAS FAMILY MEMBERS NAME AND NUMBER TO CALL. KATHRYN HAS ALSO STATED HE HAS NOT DECIDED IF PATIENT WILL UNDERGO AICD PLACEMENT AT THIS TIME. AWAITING NEW ORDERS DIRECTED
--- NOTE | 2018-11-21 16:55 | NUR ---
WOUND CARE NOTE: ADDED PATIENT BACK ON TO SKIN INTEGRITY MONITORING PATIENT'S DENISSE SCORE IS NOW 12. PATIENT IS WOUND FREE, BUT SHE CONTINUES TO BE MAX ASSIST. RECOMMEND: CONTINUATION WITH ALL WOUND CARE ORDERS PREVIOUSLY PRESCRIBED BY MD., CONTINUATION WITH SKIN/WOUND CARE PLAN, CONTINUED MONITORING BY WOUND CARE TEAM .
[2018-11-21 18:22] VITALS: BP 123/63
--- NOTE | 2018-11-21 19:50 | NUR ---
Opening Shift Note Assumed care of patient, awake and alert, oriented mostly to self only. No S/S of distress/SOB or pain. Sitter at bedside for patient safety. Instructed on POC and to call for assist PRN, will continue to monitor for changes Q1hr and PRN.
[2018-11-21 20:38] LABS: Urine Bacteria FEW /hpf (None Seen); Urine Blood 1+ /uL (Negative); Urine Budding Yeast MODERATE /hpf (None Seen); Urine Mucus FEW (None Seen); Urine Specific Gravity 1.017 (1.001-1.035); Urine WBC 215 /hpf (0 - 5); Urine WBC Clumps PRESENT /hpf (None Seen)
[2018-11-21 22:00] VITALS: BP 111/53
[2018-11-21] MEDS: cefTRIAXone 1GM/50ML D5W 50 ML IV SCH (22:08)
[2018-11-21] MEDS: ATORVASTATIN 20 MG TAB PO SCH (22:57)
[2018-11-22] MEDS: DOBUTamine 1000MCG/ML 250 ML IV SCH ×2 (01:49→23:58)
--- NOTE | 2018-11-22 03:08 | NUR ---
Opening Shift Note Assumed care of patient, awake and alert, oriented mostly to self only. No S/S of distress/SOB or pain. Sitter at bedside for patient safety. Instructed on POC and to call for assist PRN, will continue to monitor for changes Q1hr and PRN. Addendum: 11/22/18 at 0316 by Malou Sanchez RN incorrect time
[2018-11-22 05:00] VITALS: BP 126/72
[2018-11-22] MEDS: ENOXAPARIN SOD 60 MG/0.6 ML SYRINGE SC SCH ×2 (06:02→17:39)
[2018-11-22] MEDS: FUROSEMIDE 40 MG/4 ML VIAL IV SCH ×2 (06:02→17:40)
[2018-11-22] MEDS: glipiZIDE 5 MG TAB PO SCH (06:57)
[2018-11-22] MEDS: LEVOTHYROXINE SODIUM 50 MCG TAB PO SCH (06:57)
[2018-11-22] MEDS: ACCU-CHEK COMFORT CURVE STRIP VI SCH ×4 (06:57→21:49)
[2018-11-22] MEDS: InsuLIN REG 1unit/0.01ml Soln (100units/ml) SC SCH ×5 (06:58→22:00)
--- NOTE | 2018-11-22 07:42 | NUR ---
opening Patient in bed, bed in lowest position, call light within reach. Sitter at bedside. No distress noted at this time. Will f/u with morning assessment and await MD orders
[2018-11-22] MEDS: Glucerna Carbsteady SHAKE Vanilla 8oz PO SCH ×3 (08:00→17:39)
[2018-11-22 09:00] VITALS: BP 111/56
[2018-11-22] MEDS: SOTALOL HCL 80 MG TAB PO SCH ×2 (10:00→21:48)
[2018-11-22] MEDS: PREMARIN 0.625 MG PO SCH (10:00)
[2018-11-22] MEDS: FERROUS SULFATE 325 MG TAB PO SCH (10:00)
[2018-11-22] MEDS: POTASSIUM CHL 20 Meq TABLET PO SCH (10:00)
[2018-11-22] MEDS: busPIRone HCL 10 MG TAB PO SCH ×2 (11:04→21:48)
[2018-11-22] MEDS: DOCUSATE SOD 100 MG CAP PO SCH (11:04)
[2018-11-22] MEDS: CLOPIDOGREL BISULFATE 75 MG TAB PO SCH (11:05)
[2018-11-22] MEDS: amLODIPine BESYLATE 5 MG TAB PO SCH (11:06)
[2018-11-22] MEDS: METOPROLOL TARTRATE 50 MG TAB PO SCH ×2 (11:06→21:49)
[2018-11-22 13:00] VITALS: BP 101/52
[2018-11-22 17:00] VITALS: BP 102/65
--- NOTE | 2018-11-22 19:08 | NUR ---
Opening shift note Patient is resting comfortably in bed. No S/S of distress or pain noted. Bed is in lowest position with call light next to the patient. Patient informed of plan of care. There is a sitter at bedside.
[2018-11-22] MEDS: cefTRIAXone 1GM/50ML D5W 50 ML IV SCH (21:47)
[2018-11-22] MEDS: ATORVASTATIN 20 MG TAB PO SCH (21:48)
[2018-11-22 22:00] VITALS: BP 112/59
--- NOTE | 2018-11-23 | NUR ---
Patient is NPO starting now.
[2018-11-23 05:03] VITALS: BP 109/56
[2018-11-23] MEDS: FUROSEMIDE 40 MG/4 ML VIAL IV SCH ×2 (05:39→17:55)
[2018-11-23] MEDS: ENOXAPARIN SOD 60 MG/0.6 ML SYRINGE SC SCH ×2 (05:39→17:55)
[2018-11-23] MEDS: LEVOTHYROXINE SODIUM 50 MCG TAB PO SCH (06:32)
[2018-11-23] MEDS: glipiZIDE 5 MG TAB PO SCH (06:33)
[2018-11-23] MEDS: InsuLIN REG 1unit/0.01ml Soln (100units/ml) SC SCH ×4 (06:35→22:00)
[2018-11-23] MEDS: ACCU-CHEK COMFORT CURVE STRIP VI SCH ×4 (06:36→22:42)
--- NOTE | 2018-11-23 07:03 | NUR ---
Closing shift note Patient is resting in bed. No S/S of distress or pain. Will endorse care to dayshift RN.
--- NOTE | 2018-11-23 07:03 | NUR ---
Held morning glipizide because of NPO status. Insulin was held because of a normal glucose level.
--- NOTE | 2018-11-23 07:46 | NUR ---
opening patient in bed, bed in lowest position, call light within reach. No distress noted at this time. Sitter is at bedside. Patient is awaiting stress test to be completed this morning and is aware of the test. Will f/u with morning assessment
[2018-11-23] MEDS: Glucerna Carbsteady SHAKE Vanilla 8oz PO SCH ×3 (08:00→17:55)
[2018-11-23 09:00] VITALS: BP 125/70
[2018-11-23] MEDS: CLOPIDOGREL BISULFATE 75 MG TAB PO SCH (09:46)
[2018-11-23] MEDS: DOCUSATE SOD 100 MG CAP PO SCH (09:46)
[2018-11-23] MEDS: METOPROLOL TARTRATE 50 MG TAB PO SCH ×2 (09:47→22:39)
[2018-11-23] MEDS: amLODIPine BESYLATE 5 MG TAB PO SCH (09:47)
[2018-11-23] MEDS: SOTALOL HCL 80 MG TAB PO SCH ×2 (09:48→22:00)
[2018-11-23] MEDS: busPIRone HCL 10 MG TAB PO SCH ×2 (09:48→22:40)
[2018-11-23] MEDS: FERROUS SULFATE 325 MG TAB PO SCH (09:58)
[2018-11-23] MEDS: POTASSIUM CHL 20 Meq TABLET PO SCH (09:58)
[2018-11-23] MEDS: PREMARIN 0.625 MG PO SCH (09:58)
--- NOTE | 2018-11-23 11:39 | NUR ---
PT BACK ON UNIT
[2018-11-23 13:00] VITALS: BP 101/40
[2018-11-23 17:00] VITALS: BP 122/50
--- NOTE | 2018-11-23 19:08 | NUR ---
Opening Shift Note Assumed care of patient, awake and alert. No S/S of distress/SOB or pain. Instructed on POC and to call for assist PRN, will continue to monitor for changes Q1hr and PRN.
[2018-11-23 22:00] VITALS: BP 110/58
[2018-11-23] MEDS: cefTRIAXone 1GM/50ML D5W 50 ML IV SCH (22:38)
[2018-11-23] MEDS: ATORVASTATIN 20 MG TAB PO SCH (22:41)
[2018-11-24] VITALS (7 sets, daily range): BP systolic 103–147; BP diastolic 57–70
[2018-11-24] MEDS: DOBUTamine 1000MCG/ML 250 ML IV SCH ×2 (00:48→17:55)
--- NOTE | 2018-11-24 00:48 | NUR ---
Dobutamine drip started at 00:48.
[2018-11-24] MEDS: ENOXAPARIN SOD 60 MG/0.6 ML SYRINGE SC SCH ×2 (05:36→17:55)
[2018-11-24] MEDS: FUROSEMIDE 40 MG/4 ML VIAL IV SCH ×2 (05:36→17:59)
[2018-11-24] MEDS: glipiZIDE 5 MG TAB PO SCH (06:41)
[2018-11-24] MEDS: LEVOTHYROXINE SODIUM 50 MCG TAB PO SCH (06:41)
[2018-11-24] MEDS: ACCU-CHEK COMFORT CURVE STRIP VI SCH ×4 (06:42→22:00)
[2018-11-24] MEDS: InsuLIN REG 1unit/0.01ml Soln (100units/ml) SC SCH ×4 (06:42→22:00)
--- NOTE | 2018-11-24 07:20 | NUR ---
Opening Shift Note Assumed care of patient, awake and alert to self. Sitter at bedside. No S/S of distress/SOB or pain. .
[2018-11-24] MEDS: Glucerna Carbsteady SHAKE Vanilla 8oz PO SCH ×3 (07:54→17:55)
[2018-11-24] MEDS: POTASSIUM CHL 20 Meq TABLET PO SCH (10:00)
[2018-11-24] MEDS: CLOPIDOGREL BISULFATE 75 MG TAB PO SCH (10:24)
[2018-11-24] MEDS: amLODIPine BESYLATE 5 MG TAB PO SCH (10:25)
[2018-11-24] MEDS: busPIRone HCL 10 MG TAB PO SCH ×2 (10:25→22:46)
[2018-11-24] MEDS: METOPROLOL TARTRATE 50 MG TAB PO SCH ×2 (10:26→22:00)
[2018-11-24] MEDS: DOCUSATE SOD 100 MG CAP PO SCH (10:26)
[2018-11-24] MEDS: SOTALOL HCL 80 MG TAB PO SCH ×2 (10:26→22:47)
[2018-11-24] MEDS: FERROUS SULFATE 325 MG TAB PO SCH (10:27)
[2018-11-24] MEDS: PREMARIN 0.625 MG PO SCH (10:48)
--- NOTE | 2018-11-24 22:00 | NUR ---
PT REFUSING TO OPEN HER MOUTH TO TAKE MEDS. KEEPS PLACING HER HANDS OVER HER MOUTH TO PREVENT RN FROM TRYING TO PLACE MEDICATIONS IN HER MOUTH.SITTER AT BEDSIDE.WILL ATTEMPT MEDICATION ADMINISTRATION AGAIN SHORTLY.
[2018-11-24] MEDS: ATORVASTATIN 20 MG TAB PO SCH (22:47)
[2018-11-24] MEDS: cefTRIAXone 1GM/50ML D5W 50 ML IV SCH (22:54)
[2018-11-25 05:00] VITALS: BP 131/62
[2018-11-25] MEDS: ENOXAPARIN SOD 60 MG/0.6 ML SYRINGE SC SCH ×2 (05:35→17:45)
[2018-11-25] MEDS: FUROSEMIDE 40 MG/4 ML VIAL IV SCH ×2 (05:36→17:44)
[2018-11-25] MEDS: glipiZIDE 5 MG TAB PO SCH (05:36)
[2018-11-25] MEDS: LEVOTHYROXINE SODIUM 50 MCG TAB PO SCH (05:37)
[2018-11-25] MEDS: InsuLIN REG 1unit/0.01ml Soln (100units/ml) SC SCH ×4 (05:38→22:00)
[2018-11-25] MEDS: ACCU-CHEK COMFORT CURVE STRIP VI SCH ×4 (05:38→22:42)
--- NOTE | 2018-11-25 06:16 | NUR ---
PT CONTINUES TO REFUSE HER MEDS BY CLAMPING HER MOUTH SHUT.ABLE TO TURN VERY WELL ON HER OWN WITH PROMPTING;WILL CONTINUE TO MONITOR.
[2018-11-25 09:00] VITALS: BP 115/62
[2018-11-25] MEDS: Glucerna Carbsteady SHAKE Vanilla 8oz PO SCH ×3 (09:55→17:45)
[2018-11-25] MEDS: CLOPIDOGREL BISULFATE 75 MG TAB PO SCH (09:56)
[2018-11-25] MEDS: SOTALOL HCL 80 MG TAB PO SCH ×2 (09:57→22:00)
[2018-11-25] MEDS: PREMARIN 0.625 MG PO SCH (10:00)
[2018-11-25] MEDS: FERROUS SULFATE 325 MG TAB PO SCH (10:00)
[2018-11-25] MEDS: DOCUSATE SOD 100 MG CAP PO SCH (10:00)
[2018-11-25] MEDS: busPIRone HCL 10 MG TAB PO SCH ×2 (10:02→22:00)
[2018-11-25] MEDS: METOPROLOL TARTRATE 50 MG TAB PO SCH ×2 (10:03→22:00)
[2018-11-25] MEDS: amLODIPine BESYLATE 5 MG TAB PO SCH (10:04)
[2018-11-25] MEDS: POTASSIUM CHL 20 Meq TABLET PO SCH (10:05)
--- NOTE | 2018-11-25 12:30 | NUR ---
HOT SHOT reports patient didn't eat breakfast or glucerna shake. BS 151, 2 units insulin held.
[2018-11-25 13:00] VITALS: BP 104/79
[2018-11-25] MEDS: DOBUTamine 1000MCG/ML 250 ML IV SCH (14:51)
--- NOTE | 2018-11-25 15:06 | NUR ---
PHARMACY CALLED AND REPORTS PT IS RESISTANT TO ROCEPHIN. PHARMACY RECOMMENDS FLUCONAZOLE AND INVANZ INSTEAD. MESSAGED DR PERALTA. AND REPORTED PHARMACY'S MESSAGE, AWAITING NEW ORDERS.
--- NOTE | 2018-11-25 15:25 | NUR ---
DR KATHRYN MENG MD AGREED AND IS AWARE.
--- NOTE | 2018-11-25 17:38 | NUR ---
MESSAGED DR. PERALTA AND INFORMED MD PATIENT URINE OUTPUT IS 200 MLS FOR THE DAY. REQUESTED ORDER FOR ANTIBIOTICS. DR. PERALTA MESSAGED BACK, NOT IN HOSPITAL. NO NEW ORDERS, WILL CONTINUE TO MONITOR.
--- NOTE | 2018-11-25 19:28 | NUR ---
DR. PERALTA CALLED BACK. NEW ORDERS FOR DIFLUCAN 200 MG PO QD, AND INVANZ 1G IV Q8. ALSO REQUESTED FLUIDS FOR PATIENT AND MD NOTIFIED PT NOT EATING AND DRINKING VERY MUCH. Addendum: 11/25/18 at 1931 by CLEO VARGAS RN MD ORDERED NS AT 100 CC HR
[2018-11-25] MEDS: FLUCONAZOLE 100 MG TAB PO SCH (19:30)
[2018-11-25] MEDS: ERTAPENEM SOD INJ 1 GM in SODIUM CHL 0.9% 50 ML IV SCH (19:48)
[2018-11-25] MEDS: SODIUM CHLORIDE 0.9% 1,000 ML IV SCH (19:49)
[2018-11-25] MEDS: ATORVASTATIN 20 MG TAB PO SCH (22:00)
[2018-11-26] MEDS: FUROSEMIDE 40 MG/4 ML VIAL IV SCH ×2 (04:47→18:00)
[2018-11-26] MEDS: glipiZIDE 5 MG TAB PO SCH (04:48)
[2018-11-26] MEDS: ENOXAPARIN SOD 60 MG/0.6 ML SYRINGE SC SCH (04:48)
[2018-11-26] MEDS: LEVOTHYROXINE SODIUM 50 MCG TAB PO SCH (04:55)
[2018-11-26] MEDS: SODIUM CHLORIDE 0.9% 1,000 ML IV SCH (04:56)
[2018-11-26 05:25] VITALS: BP 105/53
--- NOTE | 2018-11-26 06:58 | NUR ---
MESSAGED DR. PERALTA TO SEE IF HE WANTED TO CONTINUE FLUIDS. PATIENT WASN'T EATING EATING OR DRINKING WELL YESTERDAY, URINE OUT PUT WAS 200 MLS IN 12 HOURS AND PT IS ON LASIX. PT ALSO HAS HX OF CHF AND IS ON DOBUTAMINE. MESSAGED BACK. REPORTS TO STOP FLUIDS. WILL CONTINUE TO MONITOR.
[2018-11-26] MEDS: InsuLIN REG 1unit/0.01ml Soln (100units/ml) SC SCH ×4 (07:00→22:00)
--- NOTE | 2018-11-26 08:00 | NUR ---
PUBLIC RELATIONS ACCOUNT EXECUTIVE REPORTS PT HAS BEEN SLIGHTLY MOANING. ASSESSED PT PAIN LEVEL. PT DENIES PAIN AT THIS TIME, WILL CONTINUE TO MONITOR.
[2018-11-26 08:40] VITALS: BP 125/64
[2018-11-26] MEDS: ACCU-CHEK COMFORT CURVE STRIP VI SCH ×4 (08:43→22:22)
[2018-11-26] MEDS: Glucerna Carbsteady SHAKE Vanilla 8oz PO SCH ×3 (08:43→18:00)
[2018-11-26 10:40] LABS: Basophils # (auto) 0 uL; Basophils % (auto) 0.5 % (0.0-2.0); Eosinophils # (auto) 0.1 uL; Eosinophils % (auto) 1.4 % (0.0-7.0); Hematocrit 40.6 % (36.0-46.0); Hemoglobin 13.3 g/dL (12.2-16.2); Lymphocytes # (auto) 1.7 uL; Lymphocytes % (auto) 39.3 % (10.0-50.0); Mean Corpuscular Hgb Conc. 32.7 g/dL (32.0-36.0); Mean Corpuscular Volume 91.9 fL (80.0-100.0); Monocytes # (auto) 0.4 uL; Monocytes % (auto) 8.2 % (0.0-12.0); Neutrophils # (auto) 2.2 uL; Neutrophils % (auto) 50.6 % (37.0-80.0); Nucleated Red Blood Cells % 0.2 %; Platelet Count (auto) 363 10^3/uL (140-450); Red Blood Cells 4.42 10^6/uL (4.0-5.20); Red Cell Distribution Width 16.7 % (11.8-14.3); White Blood Cell 4.3 10^3/uL (4.4-10.8)
[2018-11-26] MEDS: FERROUS SULFATE 325 MG TAB PO SCH (10:48)
[2018-11-26] MEDS: SOTALOL HCL 80 MG TAB PO SCH ×2 (10:49→22:00)
[2018-11-26] MEDS: PREMARIN 0.625 MG PO SCH (10:49)
[2018-11-26] MEDS: busPIRone HCL 10 MG TAB PO SCH ×2 (10:50→22:00)
[2018-11-26] MEDS: FLUCONAZOLE 100 MG TAB PO SCH (10:51)
[2018-11-26] MEDS: DOCUSATE SOD 100 MG CAP PO SCH (10:51)
[2018-11-26] MEDS: POTASSIUM CHL 20 Meq TABLET PO SCH (10:52)
[2018-11-26] MEDS: METOPROLOL TARTRATE 50 MG TAB PO SCH ×2 (10:52→22:00)
[2018-11-26] MEDS: amLODIPine BESYLATE 5 MG TAB PO SCH (10:53)
[2018-11-26] MEDS: CLOPIDOGREL BISULFATE 75 MG TAB PO SCH (10:54)
[2018-11-26] MEDS: DOBUTamine 1000MCG/ML 250 ML IV SCH (10:54)
[2018-11-26 10:57] LABS: BUN/Creatinine Ratio 31.1; Bilirubin, Total 0.6 mg/dL (0.2-1.0); Total Protein 7.5 g/dL (6.4-8.2)
--- NOTE | 2018-11-26 11:34 | NUR ---
Pt bs 134. TIN WHIZ MACHINE OPERATOR reports patient not eating, MD aware. Diet consult put in yesterday. Insulin held. Will continue to monitor.
[2018-11-26 12:53] VITALS: BP 114/56
--- NOTE | 2018-11-26 14:09 | NUR ---
Nutrition Consult and Follow-up Notes Wt.: 75.8 kg as of yesterday. Pt's on oxygen via nasal cannula, confused, per sitter, no immediate family member at bedside during rounds this morning. Pt's no signs of distress earlier, however refusing meals, even being fed, per sitter. Pt's currently on 2 gms Na diet with Glucerna Shakes 1 carton TID with inadequate PO intake <25% ave. consumed meals (x5) in last 3 days. Est. Needs ABW [id number] kcal (20-23 kcal/kgBW), 51-64 gms pro (0.8-1.0 gms/kgABW r/t elev RFT). Will continue to monitor pertinent labs and reassess nutrient need prn Labs: Gluc 142 H, Cl 111 H, K 3.0 L, BUn 33 H, Cr 1.06 H, ALP 138 H, Alb 3.0 L Skin: Jd scale 12, high risk, pt's medial chest incision dry and intact per community service patrol officer. GI: Pt had 1 BM yesterday per community service patrol officer. PES: Inadequate PO intake r/t ? cognitive function aeb ALOC, confused, aphasic, poor PO intake, refusing meals. Altered nutrition related lab values r/t current/chronic medical condition aeb elev RFT hypocalcemia, hyperglycemia Will continue to monitor PO intake, skin status, pertinent labs and weight trend. F/u in 3 to 5 days. Rec.: 1.) Continue close supervision and feeding assistance prn during meals. 2.)If pt's gluc level remains consistently elev. consider Consistent Std. Carb: 60 gms/meal in addition to current therapeutic diet. 3.) Consider appetite stimulant prn to improved PO intake. 4.) If pt's PO intake remains inadequate (<50%), consider alternate nutrition support if medically appropriate. 5.) Refer pt to CDE/RD for further nutrition education and weight monitoring upon discharge. 5.) 6) Continue current plan of care. Thank you for this consult.
--- NOTE | 2018-11-26 15:32 | NUR ---
RECEIVED CALL FROM LAB. PT POTASSIUM LEVEL IS 3.0. LEFT MESSAGE FOR DR. PERALTA, AWAITING RESPONSE.
[2018-11-26 17:00] VITALS: BP 120/62
[2018-11-26] MEDS: ERTAPENEM SOD INJ 1 GM in SODIUM CHL 0.9% 50 ML IV SCH (19:23)
[2018-11-26] MEDS: POTASSIUM CHL 20MEQ/100ML 100 ML IV SCH ×2 (20:12→22:20)
[2018-11-26 21:30] VITALS: BP 113/64
[2018-11-26] MEDS: ATORVASTATIN 20 MG TAB PO SCH (22:00)
[2018-11-27] MEDS: glipiZIDE 5 MG TAB PO SCH (05:17)
[2018-11-27] MEDS: LEVOTHYROXINE SODIUM 50 MCG TAB PO SCH (05:17)
[2018-11-27] MEDS: ACCU-CHEK COMFORT CURVE STRIP VI SCH ×4 (05:31→23:18)
[2018-11-27] MEDS: FUROSEMIDE 40 MG/4 ML VIAL IV SCH ×2 (05:31→18:00)
[2018-11-27] MEDS: InsuLIN REG 1unit/0.01ml Soln (100units/ml) SC SCH ×4 (05:31→22:00)
[2018-11-27 05:58] VITALS: BP 123/58
[2018-11-27] MEDS: Glucerna Carbsteady SHAKE Vanilla 8oz PO SCH ×3 (08:50→18:00)
[2018-11-27] MEDS: DOBUTamine 1000MCG/ML 250 ML IV SCH (08:50)
[2018-11-27 09:11] VITALS: BP 125/67
[2018-11-27] MEDS: FLUCONAZOLE 100 MG TAB PO SCH (10:00)
[2018-11-27] MEDS: FERROUS SULFATE 325 MG TAB PO SCH (10:00)
[2018-11-27] MEDS: PREMARIN 0.625 MG PO SCH (10:00)
[2018-11-27] MEDS: POTASSIUM CHL 20 Meq TABLET PO SCH (10:00)
[2018-11-27] MEDS: DOCUSATE SOD 100 MG CAP PO SCH (10:00)
[2018-11-27] MEDS: amLODIPine BESYLATE 5 MG TAB PO SCH (10:27)
[2018-11-27] MEDS: busPIRone HCL 10 MG TAB PO SCH ×2 (10:29→22:22)
[2018-11-27] MEDS: CLOPIDOGREL BISULFATE 75 MG TAB PO SCH (10:29)
[2018-11-27] MEDS: METOPROLOL TARTRATE 50 MG TAB PO SCH ×2 (10:31→22:00)
[2018-11-27] MEDS: SOTALOL HCL 80 MG TAB PO SCH ×2 (10:31→22:00)
[2018-11-27 13:00] VITALS: BP 115/67
[2018-11-27] MEDS: ERTAPENEM SOD INJ 1 GM in SODIUM CHL 0.9% 50 ML IV SCH (18:00)
[2018-11-27 22:00] VITALS: BP 109/72
[2018-11-27] MEDS: ATORVASTATIN 20 MG TAB PO SCH (22:22)
[2018-11-28 05:00] VITALS: BP 134/93
[2018-11-28] MEDS: glipiZIDE 5 MG TAB PO SCH (05:52)
[2018-11-28] MEDS: DOBUTamine 1000MCG/ML 250 ML IV SCH (05:52)
[2018-11-28] MEDS: LEVOTHYROXINE SODIUM 50 MCG TAB PO SCH (05:52)
[2018-11-28] MEDS: ACCU-CHEK COMFORT CURVE STRIP VI SCH ×4 (05:53→21:06)
[2018-11-28] MEDS: InsuLIN REG 1unit/0.01ml Soln (100units/ml) SC SCH ×4 (06:05→21:06)
[2018-11-28] MEDS: FUROSEMIDE 40 MG/4 ML VIAL IV SCH ×2 (06:06→18:00)
[2018-11-28] MEDS: Glucerna Carbsteady SHAKE Vanilla 8oz PO SCH ×3 (08:00→18:00)
[2018-11-28 09:00] VITALS: BP 119/68
[2018-11-28 09:51] LABS: Basophils # (auto) 0 uL; Basophils % (auto) 0.8 % (0.0-2.0); Eosinophils # (auto) 0 uL; Eosinophils % (auto) 0.8 % (0.0-7.0); Hematocrit 40.9 % (36.0-46.0); Hemoglobin 13.7 g/dL (12.2-16.2); Lymphocytes # (auto) 1.8 uL; Lymphocytes % (auto) 35.8 % (10.0-50.0); Mean Corpuscular Hemoglobin 30.5 pg (28.0-32.0); Mean Corpuscular Hgb Conc. 33.5 g/dL (32.0-36.0); Mean Corpuscular Volume 91.1 fL (80.0-100.0); Monocytes # (auto) 0.4 uL; Monocytes % (auto) 8.5 % (0.0-12.0); Neutrophils # (auto) 2.8 uL; Neutrophils % (auto) 54.1 % (37.0-80.0); Nucleated Red Blood Cells % 0.2 %; Platelet Count (auto) 300 10^3/uL (140-450); Red Blood Cells 4.49 10^6/uL (4.0-5.20); Red Cell Distribution Width 16.8 % (11.8-14.3); White Blood Cell 5.1 10^3/uL (4.4-10.8)
[2018-11-28 10:00] LABS: Albumin 3.3 g/dL (3.4-5.0); Calcium 9.6 mg/dL (8.5-10.1); Potassium 3.3 mmol/L (3.5-5.1)
[2018-11-28] MEDS: POTASSIUM CHL 20 Meq TABLET PO SCH (10:00)
[2018-11-28] MEDS: DOCUSATE SOD 100 MG CAP PO SCH (10:00)
[2018-11-28] MEDS: PREMARIN 0.625 MG PO SCH (10:00)
[2018-11-28] MEDS: FERROUS SULFATE 325 MG TAB PO SCH (10:00)
[2018-11-28] MEDS: FLUCONAZOLE 100 MG TAB PO SCH (10:00)
[2018-11-28 10:02] LABS: BUN/Creatinine Ratio 28.8; Bilirubin, Total 0.7 mg/dL (0.2-1.0); Total Protein 7.9 g/dL (6.4-8.2)
[2018-11-28] MEDS: CLOPIDOGREL BISULFATE 75 MG TAB PO SCH (10:08)
[2018-11-28] MEDS: amLODIPine BESYLATE 5 MG TAB PO SCH (10:09)
[2018-11-28] MEDS: busPIRone HCL 10 MG TAB PO SCH ×2 (10:10→21:07)
[2018-11-28] MEDS: SOTALOL HCL 80 MG TAB PO SCH ×2 (10:10→21:07)
[2018-11-28] MEDS: METOPROLOL TARTRATE 50 MG TAB PO SCH ×2 (10:11→21:07)
[2018-11-28 10:26] LABS: INR 1.09 (0.9-1.15); Partial Thromboplastin Time 19.1 sec (23.78-33.04); Prothrombin Time 11.6 sec (9.27-12.13)
--- NOTE | 2018-11-28 12:15 | NUR ---
WOUND CARE NOTE: Weekly reevaluation by wound care team. Patient has been on skin integrity rounds due to low Jd score. Patient remains wound free and still is max assist. Discussed with bedside RNEunice, patient still reluctant to have nursing staff frequently reposition due to dementia. RECOMMENDATIONS: Continue with all previously order skin/wound care orders and care plan; wound care team to continue to follow.
[2018-11-28 13:00] VITALS: BP 105/55
[2018-11-28] MEDS: ERTAPENEM SOD INJ 1 GM in SODIUM CHL 0.9% 50 ML IV SCH (18:00)
[2018-11-28 19:00] VITALS: BP 126/58
--- NOTE | 2018-11-28 20:34 | NUR ---
CONTACTED DR PERALTA TO CLARIFY PATIENT PROCEDURE TOMORROW, DR PERALTA ORDERS TO HOLD OFF ON OBTAINING CONSENT ON PATIENT REGARDING AICD PLACEMENT FOR TOMORROW CONTINUE PATIENT CURRENT DIET. INFORMED DR PERALTA REGARDING PATIENT K-3.3 NO FURTHER ORDERS.
[2018-11-28 21:00] VITALS: BP 108/61
[2018-11-28] MEDS: ATORVASTATIN 20 MG TAB PO SCH (21:07)
[2018-11-29] MEDS: DOBUTamine 1000MCG/ML 250 ML IV SCH (02:09)
[2018-11-29 05:02] VITALS: BP 108/61
[2018-11-29] MEDS: FUROSEMIDE 40 MG/4 ML VIAL IV SCH ×2 (06:00→17:31)
[2018-11-29] MEDS: InsuLIN REG 1unit/0.01ml Soln (100units/ml) SC SCH ×4 (06:38→22:36)
[2018-11-29] MEDS: LEVOTHYROXINE SODIUM 50 MCG TAB PO SCH (06:38)
[2018-11-29] MEDS: glipiZIDE 5 MG TAB PO SCH (06:38)
[2018-11-29] MEDS: ACCU-CHEK COMFORT CURVE STRIP VI SCH ×4 (06:38→22:36)
[2018-11-29 06:46] LABS: Basophils # (auto) 0 uL; Basophils % (auto) 0.5 % (0.0-2.0); Eosinophils # (auto) 0 uL; Eosinophils % (auto) 0.9 % (0.0-7.0); Hematocrit 38.4 % (36.0-46.0); Hemoglobin 12.9 g/dL (12.2-16.2); Lymphocytes # (auto) 1.5 uL; Lymphocytes % (auto) 33.9 % (10.0-50.0); Mean Corpuscular Hemoglobin 30.6 pg (28.0-32.0); Mean Corpuscular Hgb Conc. 33.7 g/dL (32.0-36.0); Mean Corpuscular Volume 90.8 fL (80.0-100.0); Monocytes # (auto) 0.4 uL; Neutrophils # (auto) 2.5 uL; Neutrophils % (auto) 55.7 % (37.0-80.0); Nucleated Red Blood Cells % 0.1 %; Platelet Count (auto) 257 10^3/uL (140-450); Red Blood Cells 4.23 10^6/uL (4.0-5.20); Red Cell Distribution Width 16.3 % (11.8-14.3); White Blood Cell 4.6 10^3/uL (4.4-10.8)
--- NOTE | 2018-11-29 07:15 | NUR ---
Open Shift Note Received report on patient, asleep in bed. Patient shows no signs of distress at this time. Bed in lowest locked position, side rails up x2, and call light within reach. Sitter at bedside. Will continue to monitor.
[2018-11-29 07:24] LABS: Potassium 3.3 mmol/L (3.5-5.1)
[2018-11-29 07:31] LABS: Albumin 2.9 g/dL (3.4-5.0); BUN/Creatinine Ratio 36.1; Bilirubin, Total 0.5 mg/dL (0.2-1.0); Calcium 9.3 mg/dL (8.5-10.1); Total Protein 7.1 g/dL (6.4-8.2)
[2018-11-29 08:34] VITALS: BP_SYST 115; BP_SYST 118; BP_DIAS 66; BP_DIAS 74
--- NOTE | 2018-11-29 08:55 | NUR ---
Spoke With Case Management Wei from case management called to say that family is requesting the patient be sent to [facility] upon discharge. Verbalized understanding and stated that Dr Landrum will be made aware.
[2018-11-29] MEDS: POTASSIUM CHL 20 Meq TABLET PO SCH (10:00)
[2018-11-29] MEDS: DOCUSATE SOD 100 MG CAP PO SCH (10:00)
[2018-11-29] MEDS: METOPROLOL TARTRATE 50 MG TAB PO SCH ×2 (10:00→22:02)
[2018-11-29] MEDS: Glucerna Carbsteady SHAKE Vanilla 8oz PO SCH ×3 (10:10→17:32)
[2018-11-29] MEDS: busPIRone HCL 10 MG TAB PO SCH ×2 (10:10→22:01)
[2018-11-29] MEDS: FERROUS SULFATE 325 MG TAB PO SCH (10:10)
[2018-11-29] MEDS: PREMARIN 0.625 MG PO SCH (10:11)
[2018-11-29] MEDS: SOTALOL HCL 80 MG TAB PO SCH ×2 (10:17→22:01)
[2018-11-29] MEDS: FLUCONAZOLE 100 MG TAB PO SCH (10:19)
[2018-11-29] MEDS: CLOPIDOGREL BISULFATE 75 MG TAB PO SCH (10:20)
[2018-11-29] MEDS: amLODIPine BESYLATE 5 MG TAB PO SCH (10:20)
--- NOTE | 2018-11-29 11:53 | NUR ---
Patient Up To Chair Physical therapy got patient up to chair. Tolerated well.
[2018-11-29 13:00] VITALS: BP 110/60
[2018-11-29 17:00] VITALS: BP 124/66
[2018-11-29] MEDS: ERTAPENEM SOD INJ 1 GM in SODIUM CHL 0.9% 50 ML IV SCH (17:29)
--- NOTE | 2018-11-29 18:14 | NUR ---
Paged Diallo Paged Dr Landrum to inform him that patient has not eaten and family is requesting [facility] upon discharge. Also asked if he would like orders for surgery tomorrow. Awaiting call back.
--- NOTE | 2018-11-29 19:38 | NUR ---
RECEIVED PATIENT FROM DAYS SHIFT RN. PATIENT RESTING IN BED. NO S/S OF DISTRESS NOTED. DENIED PAIN FOR NOW. REORIENTED PATIENT TIME, PLACE, AND SITUATION. PATIENT NO VERBAL RESPONSE AT THIS TIME ONLY SHAKING OR NOD HER HEAD SHOWING HER UNDERSTANDING. CARR[facility] CATH IN PLACE DRAINING GRAVITY. POC INSTRUCTED. BED IN LOWEST POSITION WITH SIDE RAILS UP X 2. CALL STARKS WITHIN REACH. ALARM ON. SITTER AT BEDSIDE FOR SAFETY. CONTINUE TO MONITOR FOR CHANGES Q1H AND PRN.
[2018-11-29 21:59] VITALS: BP 124/68
[2018-11-29] MEDS: ATORVASTATIN 20 MG TAB PO SCH (22:01)
--- NOTE | 2018-11-29 22:37 | NUR ---
ACCU-CHECK, BS 118. NO COVERAGE. PATIENT SWALLOWED PILLS WELL. NO S/S OF ASPIRATION NOTED. CONTINUE TO MONITOR.
--- NOTE | 2018-11-30 00:05 | NUR ---
ASKED PATIENT TO BE ON NPO FOR POSSIBLE PROCEDURE TODAY. CONTINUE TO MONITOR.
--- NOTE | 2018-11-30 03:56 | NUR ---
PATIENT SLEEPING. NO S/S OF DISTRESS NOTED. SITTER AT BEDSIDE FOR SAFETY. CONTINUE CARE.
[2018-11-30] MEDS: DOBUTamine 1000MCG/ML 250 ML IV SCH (04:33)
[2018-11-30 05:00] VITALS: BP 122/65
[2018-11-30] MEDS: FUROSEMIDE 40 MG/4 ML VIAL IV SCH ×2 (05:46→17:41)
[2018-11-30] MEDS: InsuLIN REG 1unit/0.01ml Soln (100units/ml) SC SCH ×4 (06:27→22:30)
[2018-11-30] MEDS: glipiZIDE 5 MG TAB PO SCH (06:27)
[2018-11-30] MEDS: ACCU-CHEK COMFORT CURVE STRIP VI SCH ×4 (06:27→22:28)
[2018-11-30] MEDS: LEVOTHYROXINE SODIUM 50 MCG TAB PO SCH (06:27)
--- NOTE | 2018-11-30 06:49 | NUR ---
ACCU-CHECK, BS 128. NO COVERAGE. GLIPIZIDE HELD AT THIS TIME FOR NPO FOR POSSIBLE PROCEDURE. CONTINUE CARE.
[2018-11-30] MEDS: Glucerna Carbsteady SHAKE Vanilla 8oz PO SCH ×3 (08:00→18:00)
[2018-11-30 09:00] VITALS: BP 105/60
[2018-11-30] MEDS: FERROUS SULFATE 325 MG TAB PO SCH (09:40)
[2018-11-30] MEDS: DOCUSATE SOD 100 MG CAP PO SCH (09:40)
[2018-11-30] MEDS: FLUCONAZOLE 100 MG TAB PO SCH (09:40)
[2018-11-30] MEDS: CLOPIDOGREL BISULFATE 75 MG TAB PO SCH (09:40)
[2018-11-30] MEDS: POTASSIUM CHL 20 Meq TABLET PO SCH (09:40)
[2018-11-30] MEDS: busPIRone HCL 10 MG TAB PO SCH ×2 (09:42→22:27)
[2018-11-30] MEDS: PREMARIN 0.625 MG PO SCH (09:42)
[2018-11-30] MEDS: SOTALOL HCL 80 MG TAB PO SCH ×2 (09:42→22:27)
[2018-11-30] MEDS: METOPROLOL TARTRATE 50 MG TAB PO SCH ×2 (09:42→22:28)
[2018-11-30] MEDS: amLODIPine BESYLATE 5 MG TAB PO SCH (10:00)
--- NOTE | 2018-11-30 12:41 | NUR ---
Nutrition Follow-up Notes Wt.: 75.8 kg as of 11/29/18. Pt's on oxygen via nasal cannula, asleep, no immediate family member at bedside except for sitter, during rounds this morning. Pt's no signs of distress earlier, however refusing meals, doesn't want to be assisted or being fed, per sitter. Pt's currently on 2 gms Na diet with Glucerna Shakes 1 carton TID with inadequate PO intake no record of food intake in last 3 days except for some sips of oral nutrition supplements, per sitter. Est. Needs ABW [id number] kcal (20-23 kcal/kgBW), 51-64 gms pro (0.8-1.0 gms/kgABW r/t elev RFT). Will continue to monitor pertinent labs and reassess nutrient need prn Labs: POC 143 H : 11/29/18 Gluc 128 H, Cl 111 H, K 3.3 L, BUN 43 H, Cr 1.19 H, ALP 118 H, Alb 2.9 L Skin: Jd scale 15, mod risk, pt's medial chest incision dry and intact per records management coordinator. GI: Pt had 1 BM 11/27/18 per records management coordinator. PES: Inadequate PO intake r/t ? cognitive function aeb ALOC, confused, aphasic, poor PO intake, refusing meals. Altered nutrition related lab values r/t current/chronic medical condition aeb elev RFT hypocalcemia, hyperglycemia Will continue to monitor PO intake, skin status, pertinent labs and weight trend. F/u in 3 to 5 days. Rec.: 1.) Continue close supervision and feeding assistance prn during meals. 2.)If pt's gluc level remains consistently elev. consider Consistent Std. Carb: 60 gms/meal in addition to current therapeutic diet. 3.) Consider appetite stimulant prn to improved PO intake. 4.) If pt's PO intake remains inadequate (<50%), consider alternate nutrition support if medically appropriate. 5.) Consider to regularly obtain and record weight based on bed scale. 5.) Refer pt to CDE/RD for further nutrition education and weight monitoring upon discharge 6) Continue current plan of care.
[2018-11-30 12:50] VITALS: BP 111/47
[2018-11-30 17:00] VITALS: BP 109/60
[2018-11-30] MEDS: ERTAPENEM SOD INJ 1 GM in SODIUM CHL 0.9% 50 ML IV SCH (17:41)
--- NOTE | 2018-11-30 19:09 | NUR ---
Change of shift given to shift commander RN. No distress noted. BP taken right now: 102/58.
--- NOTE | 2018-11-30 19:58 | NUR ---
RECEIVED PATIENT FROM DAYS SHIFT RN. PATIENT RESTING IN BED. NO S/S OF DISTRESS NOTED. DENIED PAIN FOR NOW. REORIENTED PATIENT TIME, PLACE, AND SITUATION. PATIENT COULD ANSWER SOME SIMPLE QUESTIONS TODAY. REFUSED TO EAT DINNER. ENCOURAGED PATIENT TO EAT SOMETHING, PATIENT STILL REFUSED. WILL TRY LATER. CARRERO CATH IN PLACE DRAINING GRAVITY. POC INSTRUCTED. BED IN LOWEST POSITION WITH SIDE RAILS UP X 2. CALL STARKS WITHIN REACH. ALARM ON. SITTER AT BEDSIDE FOR SAFETY. CONTINUE TO MONITOR FOR CHANGES Q1H AND PRN.
[2018-11-30 22:00] VITALS: BP 108/59
[2018-11-30] MEDS: ATORVASTATIN 20 MG TAB PO SCH (22:27)
--- NOTE | 2018-11-30 22:41 | NUR ---
ACCU-CHECK, BS 113. NO COVERAGE. PATIENT SWALLOWED PILLS WELL. NO S/S OF ASPIRATION NOTED. CONTINUE TO MONITOR.
[2018-12-01] MEDS: DOBUTamine 1000MCG/ML 250 ML IV SCH ×2 (00:23→17:50)
--- NOTE | 2018-12-01 00:24 | NUR ---
REPOSITIONED PATIENT TO COMFORT. PATIENT TOLERATED WELL. CONTINUE CARE.
--- NOTE | 2018-12-01 02:17 | NUR ---
PATIENT SLEEPING. NO S/S OF DISTRESS NOTED. REPOSITIONED PATIENT TO COMFORT. CONTINUE CARE.
--- NOTE | 2018-12-01 05:14 | NUR ---
PATIENT HAD BM. CLEANED PATIENT. PARTIAL LINEN AND GOWN CHANGED. PATIENT TOLERATED WELL. CONTINUE CARE.
[2018-12-01 05:54] VITALS: BP 111/60
[2018-12-01] MEDS: InsuLIN REG 1unit/0.01ml Soln (100units/ml) SC SCH ×4 (06:23→21:52)
[2018-12-01] MEDS: FUROSEMIDE 40 MG/4 ML VIAL IV SCH ×2 (06:23→17:51)
[2018-12-01] MEDS: ACCU-CHEK COMFORT CURVE STRIP VI SCH ×4 (06:23→21:52)
[2018-12-01] MEDS: glipiZIDE 5 MG TAB PO SCH (06:24)
[2018-12-01] MEDS: LEVOTHYROXINE SODIUM 50 MCG TAB PO SCH (06:24)
--- NOTE | 2018-12-01 06:26 | NUR ---
ACCU-CHECK, BS 114. NO COVERAGE. GLIPIZIDE HELD AT THIS TIME SINCE PATIENT POOR APPETITE. CONTINUE CARE.
--- NOTE | 2018-12-01 07:15 | NUR ---
Opening Shift Note Report received and assumed care of patient, awake,alert and confused. No S/S of distress/SOB or pain. safety and occupational health manager at bedside.patient oriented to place,time,nursing routines and plan of care.patient encouraged to eat breakfast.will continue to monitor for changes Q1hr and PRN. turning to sides q2 hrs.
[2018-12-01] MEDS: Glucerna Carbsteady SHAKE Vanilla 8oz PO SCH ×3 (08:29→17:52)
[2018-12-01 09:00] VITALS: BP 114/63
[2018-12-01] MEDS: DOCUSATE SOD 100 MG CAP PO SCH (10:00)
--- NOTE | 2018-12-01 10:30 | NUR ---
PHYSICAL THERAPY PT AT BEDSIDE ASSISTED PATIENT TO GET OOB AND DANGLE,DID ROM THEN STAND UP MARCH IN PLACE THEN BACK TO BED
[2018-12-01] MEDS: CLOPIDOGREL BISULFATE 75 MG TAB PO SCH (11:58)
[2018-12-01] MEDS: amLODIPine BESYLATE 5 MG TAB PO SCH (12:01)
[2018-12-01] MEDS: busPIRone HCL 10 MG TAB PO SCH ×2 (12:02→21:51)
[2018-12-01] MEDS: SOTALOL HCL 80 MG TAB PO SCH ×2 (12:02→21:51)
[2018-12-01] MEDS: FLUCONAZOLE 100 MG TAB PO SCH (12:03)
[2018-12-01] MEDS: POTASSIUM CHL 20 Meq TABLET PO SCH (12:04)
[2018-12-01] MEDS: METOPROLOL TARTRATE 50 MG TAB PO SCH ×2 (12:05→21:52)
[2018-12-01] MEDS: FERROUS SULFATE 325 MG TAB PO SCH (12:05)
[2018-12-01] MEDS: PREMARIN 0.625 MG PO SCH (12:06)
--- NOTE | 2018-12-01 12:30 | NUR ---
ACCU CHECK RESULT 154,PATIENT REFUSED TO EAT EVEN WITH A LOT OF ENCOURAGEMENT,REGULAR INSULIN SLIDING SCALE NOT GIVEN,
[2018-12-01 13:00] VITALS: BP 120/68
[2018-12-01 17:00] VITALS: BP 112/48
--- NOTE | 2018-12-01 18:00 | NUR ---
PATIENT STILL REFUSING TO EAT,ENCOURAGE AND EXPLAIN IMPORTANCE OF NUTRITION
[2018-12-01] MEDS: ERTAPENEM SOD INJ 1 GM in SODIUM CHL 0.9% 50 ML IV SCH (18:11)
--- NOTE | 2018-12-01 19:45 | NUR ---
RECEIVED PATIENT FROM DAYS SHIFT RN. PATIENT RESTING IN BED. NO S/S OF DISTRESS NOTED. DENIED PAIN. REORIENTED PATIENT TIME, PLACE, AND SITUATION. PATIENT COULD ANSWER QUESTIONS. REFUSED TO EAT DINNER. ENCOURAGED PATIENT TO EAT AND DRINK SO THAT SHE CAN RECOVER SOON. PATIENT VERBALIZED UNDERSTANDING AT THIS TIME AND STATED WILL TRY LATER. CARRERO CATH IN PLACE DRAINING GRAVITY. POC INSTRUCTED AND ENCOURAGED PATIENT TO CALL FOR [employer] IF NEEDED. BED IN LOWEST POSITION WITH SIDE RAILS UP X 2. CALL STARKS WITHIN REACH. ALARM ON. SITTER AT BEDSIDE FOR SAFETY. CONTINUE TO MONITOR FOR CHANGES Q1H AND PRN.
[2018-12-01 21:14] VITALS: BP 130/59
[2018-12-01] MEDS: ATORVASTATIN 20 MG TAB PO SCH (21:51)
--- NOTE | 2018-12-01 21:54 | NUR ---
ACCU-CHECK, BS 102. NO COVERAGE. PATIENT SWALLOWED PILLS WELL. NO S/S OF ASPIRATION NOTED. ENCOURAGED PATIENT TO DRINK MORE WATER. PATIENT DRANK WELL. CONTINUE TO MONITOR.
[2018-12-02] VITALS (7 sets, daily range): BP systolic 107–132; BP diastolic 55–77
--- NOTE | 2018-12-02 05:28 | NUR ---
PATIENT HAD BM. CLEANED PATIENT. PARTIAL LINEN AND GOWN CHANGED. PATIENT TOLERATED WELL. CONTINUE CARE.
[2018-12-02] MEDS: FUROSEMIDE 40 MG/4 ML VIAL IV SCH ×2 (06:37→18:30)
[2018-12-02] MEDS: LEVOTHYROXINE SODIUM 50 MCG TAB PO SCH (06:37)
[2018-12-02] MEDS: ACCU-CHEK COMFORT CURVE STRIP VI SCH ×4 (06:37→22:11)
[2018-12-02] MEDS: InsuLIN REG 1unit/0.01ml Soln (100units/ml) SC SCH ×4 (06:37→22:00)
[2018-12-02] MEDS: glipiZIDE 5 MG TAB PO SCH (06:38)
--- NOTE | 2018-12-02 06:39 | NUR ---
ACCU-CHECK, BS 102. NO COVERAGE. GLIPIZIDE HELD AT THIS TIME SINCE PATIENT POOR APPETITE. CONTINUE CARE.
--- NOTE | 2018-12-02 07:25 | NUR ---
OPENING SHIFT NOTE ASSUMED CARE OF PATIENT FROM OUTREACH ASSOCIATE RN ROSEMARIE. PATIENT IS AWAKE AND ALERT X1 (PERSON). WILL CONTINUE TO REORIENT PATIENT TO DATE, TIME, AND SITUATION. INSTRUCTED PATIENT POC, PATIENT VERBALIZED UNDERSTANDING. WILL CONTINUE TO REINFORCE PLAN THROUGH OUT SHIFT. BED IS IN LOWEST POSITION WITH SIDE RAILS RAISED X2, BED WHEELS LOCKED, CARRERO IS HANGING BELOW BLADDER AND IS DRAINING YELLOW URINE, CALL LIGHT WITHIN REACH AND SITTER AT BEDSIDE. WILL CONTINUE TO MONITOR.
[2018-12-02] MEDS: Glucerna Carbsteady SHAKE Vanilla 8oz PO SCH ×3 (08:00→18:00)
[2018-12-02] MEDS: PREMARIN 0.625 MG PO SCH ×2 (10:00→10:35)
[2018-12-02] MEDS: SOTALOL HCL 80 MG TAB PO SCH ×2 (10:00→22:04)
[2018-12-02] MEDS: POTASSIUM CHL 20 Meq TABLET PO SCH ×2 (10:00→10:34)
[2018-12-02] MEDS: FERROUS SULFATE 325 MG TAB PO SCH (10:34)
[2018-12-02] MEDS: CLOPIDOGREL BISULFATE 75 MG TAB PO SCH (10:34)
[2018-12-02] MEDS: DOCUSATE SOD 100 MG CAP PO SCH (10:34)
[2018-12-02] MEDS: FLUCONAZOLE 100 MG TAB PO SCH (10:35)
[2018-12-02] MEDS: busPIRone HCL 10 MG TAB PO SCH ×2 (10:35→22:03)
[2018-12-02] MEDS: amLODIPine BESYLATE 5 MG TAB PO SCH (10:36)
[2018-12-02] MEDS: METOPROLOL TARTRATE 50 MG TAB PO SCH ×2 (10:37→22:04)
[2018-12-02] MEDS: ERTAPENEM SOD INJ 1 GM in SODIUM CHL 0.9% 50 ML IV SCH (18:30)
[2018-12-02] MEDS: DOBUTamine 1000MCG/ML 250 ML IV SCH (19:54)
[2018-12-02] MEDS: ATORVASTATIN 20 MG TAB PO SCH (22:03)
--- NOTE | 2018-12-03 03:33 | NUR ---
CLOSING SHIFT NOTE ENDORSED CARE TO [employer] RICH LOCKE. PATIENT HAS NO S/S OF DISTRESS/SOB OR PAIN AT THIS TIME. Addendum: 12/03/18 at 0335 by Freda Desir RN RN DAY SHIFT RICH LOCKE
--- NOTE | 2018-12-03 03:40 | NUR ---
Opening Shift Note Assumed care of patient, sleeping, easily awakened via verbal stimuli, alert X1. No S/S of distress/SOB or pain noted at this time, no facial grimacing or moaning noted, sitter at bedside for safety, ML to SAPNA, CDI, benign, no swelling or redness noted, infusing Dobutamine. Blas patent draining via gravity, Instructed on POC and to call for assist PRN, pt unable to verbalize understanding, will continue to monitor for changes Q1hr and PRN.
[2018-12-03 05:02] VITALS: BP 111/68
[2018-12-03] MEDS: FUROSEMIDE 40 MG/4 ML VIAL IV SCH ×2 (06:55→18:00)
[2018-12-03] MEDS: LEVOTHYROXINE SODIUM 50 MCG TAB PO SCH (06:55)
[2018-12-03] MEDS: glipiZIDE 5 MG TAB PO SCH (06:56)
[2018-12-03] MEDS: ACCU-CHEK COMFORT CURVE STRIP VI SCH ×3 (06:56→17:00)
[2018-12-03] MEDS: InsuLIN REG 1unit/0.01ml Soln (100units/ml) SC SCH ×3 (06:56→17:00)
[2018-12-03 08:00] VITALS: BP 104/60
[2018-12-03] MEDS: Glucerna Carbsteady SHAKE Vanilla 8oz PO SCH ×3 (08:00→18:00)
[2018-12-03 09:00] VITALS: BP 104/60
[2018-12-03] MEDS: METOPROLOL TARTRATE 50 MG TAB PO SCH (10:00)
[2018-12-03] MEDS: POTASSIUM CHL 20 Meq TABLET PO SCH ×2 (10:00→11:21)
[2018-12-03] MEDS: DOCUSATE SOD 100 MG CAP PO SCH ×2 (10:00→11:20)
[2018-12-03] MEDS: amLODIPine BESYLATE 5 MG TAB PO SCH (10:00)
--- NOTE | 2018-12-03 10:30 | NUR ---
PHYSICAL THERAPY PT TRANSFERRED TO CHAIR, PT TOLERATED WELL, CONT CARE
[2018-12-03] MEDS: busPIRone HCL 10 MG TAB PO SCH (11:19)
[2018-12-03] MEDS: FLUCONAZOLE 100 MG TAB PO SCH (11:20)
[2018-12-03] MEDS: SOTALOL HCL 80 MG TAB PO SCH (11:20)
[2018-12-03] MEDS: CLOPIDOGREL BISULFATE 75 MG TAB PO SCH (11:20)
[2018-12-03] MEDS: PREMARIN 0.625 MG PO SCH (11:21)
[2018-12-03] MEDS: FERROUS SULFATE 325 MG TAB PO SCH (11:21)
[2018-12-03] MEDS: DOBUTamine 1000MCG/ML 250 ML IV SCH (11:23)
--- NOTE | 2018-12-03 11:30 | NUR ---
ORDER OBTAINED TO DC [facility]
[2018-12-03 12:40] VITALS: BP 111/66
--- NOTE | 2018-12-03 14:27 | NUR ---
PATIENT HAS BEEN ACCEPTED AT [facility] ROOM 14A. NUMBER FOR REPORT IS [phone]. TRANSPORTATION WILL BE ARRANGED BY [facility] AT [facility]. Addendum: 12/03/18 at 1552 by Wei Mays RN CM [facility] TRANSPORTATION IS SCHEDULED TO TRANSPORT PATIENT AT 7:45PM. PHONE NUMBER IS [phone]
--- NOTE | 2018-12-03 15:40 | NUR ---
DC ORDER OBTAINED FROM MD DR PERALTA DISCHARGED PT TO SNF, [facility]
--- NOTE | 2018-12-03 15:45 | NUR ---
CLARIFIED MEDICATIONS POST DC PER DR PERALTA, NO ABX, PT WILL RESUME HOME MEDICATIONS ONLY, CONT WITH DC
[2018-12-03 16:15] VITALS: BP 111/66
[2018-12-03 17:00] VITALS: BP 118/70
--- NOTE | 2018-12-03 17:15 | NUR ---
CALLED [facility] VALLADARES AND REPORT GIVEN TO ELLA VILLANUEVA ALSO CALLED DAUGHTER DAVID, SHE IS AWARE OF DESTINATION AND CONTACT INFORMATION FOR [facility], SHE REQUESTED TO SPEAK WITH DR PERALTA, DR PERALTA WAS PAGED AND MD RETURNED CALL AND STATES HE SPOKE WITH DAUGHTER, CONT WITH DC
--- NOTE | 2018-12-03 17:35 | NUR ---
CARRERO WILL REMAIN INSERTED CLARIFIED WITH MD AND UT DR PERALTA, PT WILL BE TRANSFERRED TO SNF WITH [facility] CATHETER, [facility]
[2018-12-03] MEDS: ERTAPENEM SOD INJ 1 GM in SODIUM CHL 0.9% 50 ML IV SCH (18:00)
--- NOTE | 2018-12-03 18:15 | NUR ---
LOW BS 51 PT ASYMPTOMATIC, PATIENT AXOX1, ORANGE JUICE GIVEN, PT TOLERATED, WILL RE-ASSESS
--- NOTE | 2018-12-03 19:00 | NUR ---
BS 110 PT ASYMPTOMATIC, PT CARE ENDORSED TO DOUGLAS VILLANUEVA
--- NOTE | 2018-12-03 19:05 | NUR ---
PATIENT IS ALERT AND AWARE OF TRANSFER TO [facility]. NO COMPLAINTS OF PAIN AT THIS TIME.
--- NOTE | 2018-12-03 19:37 | NUR ---
SENT MRSA SWAB TO LAB. REMOVED MIDLINE FROM LEFT UPPER ARM, NO COMPLAINTS OF PAIN. PATIENT BEING DISCHARGED AT THIS TIME TO [facility].
--- NOTE | 2018-12-04 00:39 | NUR ---
MED REC NOT COMPLETE PER TROY VALLADARES PERSONAL, WILL CONTACT DR. PERALTA.
--- NOTE | 2018-12-04 02:00 | NUR ---
MED REC FAXED TO [facility] TO JOSH [phone].
--- NOTE | 2018-12-04 02:12 | NUR ---
JOSH FROM [facility] CALLED AND SAYS DID NOT RECEIVE FAX. WILL SEND AGAIN.
--- NOTE | 2018-12-04 02:30 | NUR ---
RESENT FAX, [facility] VALLADARES STATED THEY DID NOT RECEIVE. GAVE ANOTHER PHONE NUMBER, WILL RESEND.
--- NOTE | 2018-12-04 03:20 | NUR ---
FAX WAS RESENT TO [phone]. JOSH FROM [facility] CALLED AND HAS RECEIVED FAX
== END 2018-12-03 20:00 | DRG 64 ==
LOC: TELE-WESTW 14:18
PROVIDERS: ADMIT Internal Medicine Cardiovascular Disease; ATTEND Internal Medicine Cardiovascular Disease
PROC: 4A023N7 Measurement of Cardiac Sampling and Pressure, Left Heart, Percutaneous Approach (ICD-10-PCS; principal; 2018-11-13)
PROC: B2131ZZ Fluoroscopy of Multiple Coronary Artery Bypass Grafts using Low Osmolar Contrast (ICD-10-PCS; 2018-11-13)
PROC: B2181ZZ Fluoroscopy of Left Internal Mammary Bypass Graft using Low Osmolar Contrast (ICD-10-PCS; 2018-11-13)
PROC: B2111ZZ Fluoroscopy of Multiple Coronary Arteries using Low Osmolar Contrast (ICD-10-PCS; 2018-11-13)
DX: I63.512 Cerebral infarction due to unspecified occlusion or stenosis of left middle cerebral artery (principal); I50.23 Acute on chronic systolic (congestive) heart failure; G93.41 Metabolic encephalopathy; I21.9 Acute myocardial infarction, unspecified; I25.810 Atherosclerosis of coronary artery bypass graft(s) without angina pectoris; N17.9 Acute kidney failure, unspecified; Z51.5 Encounter for palliative care; I25.5 Ischemic cardiomyopathy; N28.9 Disorder of kidney and ureter, unspecified; F09 Unspecified mental disorder due to known physiological condition; E78.5 Hyperlipidemia, unspecified; I11.0 Hypertensive heart disease with heart failure; I25.82 Chronic total occlusion of coronary artery; E86.1 Hypovolemia; I95.9 Hypotension, unspecified; Z86.73 Personal history of transient ischemic attack (TIA), and cerebral infarction without residual deficits; Z91.19 Patient's noncompliance with other medical treatment and regimen; Z79.4 Long term (current) use of insulin; Z79.899 Other long term (current) drug therapy
CPT/HCPCS: 36415; 36600; 70450; 71045; 80048; 80053; 81001; 82805; 82962; 83880; 85025; 85610; 85730; 87081; 87086; 87088; 87186; 93005; 93306; 97116; 97163; 97530; 99152; A6257; G0378; J0696; J1335; J1815; J3480; Q9956